=== PATIENT | female | born 1940 | race Caucasian/White ===

== ENCOUNTER 2022-07-11 19:16 | Emergency (ER) | payer MEDICAID, OTHER ==
[~2022-07-11] VITALS: Ht 160 cm; Wt 125.0 kg
[2022-07-11 19:57] LABS: BILIRUBIN,URINE NEGATIVE (NEGATIVE); CLARITY,URINE CLEAR; COLOR,URINE YELLOW; GLUCOSE, URINE (UA) NEGATIVE (NEGATIVE); KETONES,URINE NEGATIVE (NEGATIVE); LEUKOCYTE ESTERASE ,URINE NEGATIVE (NEGATIVE); NITRITE,URINE NEGATIVE (NEGATIVE); PROTEIN,URINE NEGATIVE (NEGATIVE)
--- NOTE | 2022-07-11 20:03 | ED GU-Female ---
General Chief Complaint: - Reproductive Stated Complaint: WEAKNESS,GI ISSUES Nursing Triage Note: Pt presents with c/o bleeding with urination. Upon investigation pt has skin breakdown and wounds to buttock, chaz, and genital regions. Wounds smell of yeast and are red and non blanching. Source: patient Exam Limitations: no limitations History of Present Illness Date Seen by Provider: Jul 11, 2022 Time Seen by Provider: 19:30 Initial Comments Patient is a 81-year-old female presents with intertrigo and bleeding around her skin folds or groin. Symptoms been ongoing for the past several days. Patient with bright red and inflamed yeast infection with red swollen skin no fever chills or sweats. No other symptoms or complaints Timing/Duration: just prior to arrival Severity/Quality: mild Location: other Radiation: other Activities at Onset: other Sexual [place] History: other Modifying Factors: Improves With Other Associated Symptoms: other Allergies and Home Medications Patient Home Medication List Home Medication List Reviewed: Yes Review of Systems Review of Systems Constitutional: see HPI EENTM: see HPI Respiratory: see HPI Gastrointestinal: see HPI Genitourinary: see HPI Musculoskeletal: see HPI Skin: see HPI Psychiatric/Neurological: See HPI Endocrine: See HPI Hematologic/Lymphatic: See HPI All Other Systemes Reviewed Negative Unless Noted: No Past Jetcerz-Bwyrja-Vbloig Hx Patient Social History Tobacco Use?: No Physical Exam Vital Signs Vital Signs - First Documented 07/11/22 19:25 Temp 36.7 Pulse 85 Resp 18 B/P (MAP) 102/78 (86) Pulse Ox 100 O2 Delivery Room Air Capillary Refill : Less Than 3 Seconds Height, Weight, BMI Height: '" Weight: lbs. oz. kg; 48.00 BMI Method: General Appearance: WD/WN, no apparent distress HEENT: PERRL/EOMI Cardiovascular: regular rate, rhythm Respiratory: lungs clear Skin: other (Intertrigo with yeast infection groin folds.) Focused Exam Sepsis Stage: Ruled Out Progress/Results/Core Measures Suspected Sepsis SIRS Temperature: Pulse: 85 Respiratory Rate: 18 Blood Pressure 102 /78 Mean: 86 Results/Orders Lab Results Laboratory Tests Test 07/11/22 19:40 Range/Units My Orders Orders - MICHAEL RUST DO Urinalysis (07/11/22 19:24) Vital Signs/I&O 07/11/22 19:25 Temp 36.7 Pulse 85 Resp 18 B/P (MAP) 102/78 (86) Pulse Ox 100 O2 Delivery Room Air Capillary Refill : Less Than 3 Seconds Blood Pressure Mean: 86 Departure Communication (Admissions) Intertrigo Impression Primary Impression: Candidiasis, intertrigo Disposition: 01 HOME, SELF-CARE Condition: Stable Departure-Patient Inst. Decision time for Depature: 20:03 Patient Instructions: Intertrigo Add. Discharge Instructions: Please keep areas clean and dry and covered. Take newly prescribed medication as directed and follow-up with your PCP in 2 to 3 days for reevaluation. All discharge instructions reviewed with patient and/or family. Voiced understanding. Scripts Fluconazole (Diflucan) 100 Mg Tablet 100 MG PO DAILY, #7 TAB Prov: MICHAEL RUST DO 07/11/22 MICHAEL RUST DO Jul 11, 2022 20:03
[2022-07-11 20:07] LABS: BACTERIA,URINE NEGATIVE /HPF; WBC,URINE RARE /HPF
[2022-07-11] MEDS ORDERED: FLUC100T PO (20:08)
[2022-07-11] MEDS ORDERED: ACHD5005 PO ×2 (20:26)
[2022-07-11 20:45] VITALS: BP 103/59
== END 2022-07-11 19:56 | disposition home or self-care (01) ==
LOC: ER FS 19:17
DX: B37.2 Candidiasis of skin and nail (principal); Z28.310 Unvaccinated for COVID-19
CPT/HCPCS: 81000; 99283

== ENCOUNTER 2022-12-11 12:14 | Inpatient (IN) | payer MEDICAID ==
[~2022-12-11] VITALS: Ht 160 cm; Wt 113.6 kg
[~2022-12-11 12:14] MED LIST: ACHD5005 PO; FLUC100T PO
[2022-12-11] MEDS ORDERED: KETOROLAC 15 MG/ML VIAL IVP STA (12:28)
--- NOTE | 2022-12-11 13:03 | Diagnostic Imaging Report ---
CLINICAL HISTORY: Left leg pain. COMPARISON: None. TECHNIQUE: 2 views of the left tibia and fibula. FINDINGS: There is no acute fracture or dislocation of the left tibia and fibula. Alignment is anatomic. The imaged joint spaces are preserved. No focal osseous lesions are seen. There is generalized soft tissue edema in the left lower extremity. IMPRESSION: 1. No acute fracture or dislocation in the left tibia and fibula. 2. Soft tissue edema in the left lower extremity. Dictated by: Dictated on workstation # [id number]
[2022-12-11 13:05] LABS: BASOPHILS # (AUTO) 0.1 10^3/uL (0.0-0.1); BASOPHILS % (AUTO) 0 % (0-10); EOSINOPHILS # (AUTO) 3.3 10^3/uL (0.0-0.3); EOSINOPHILS % (AUTO) 17 % (0-10); HEMATOCRIT 35 % (35-52); HEMOGLOBIN 11.3 g/dL (11.5-16.0); LYMPHOCYTES # (AUTO) 0.8 10^3/uL (1.0-4.0); LYMPHOCYTES % (AUTO) 4 % (12-44); MEAN CORPUSCULAR HEMOGLOBIN 29 pg (25-34); MEAN CORPUSCULAR HGB CONC 32 g/dL (32-36); MEAN CORPUSCULAR VOLUME 91 fL (80-99); MEAN PLATELET VOLUME 9.7 fL (9.0-12.2); MONOCYTES # (AUTO) 2.3 10^3/uL (0.0-1.0); MONOCYTES % (AUTO) 12 % (0-12); NEUTROPHILS # (AUTO) 12.5 10^3/uL (1.8-7.8); NEUTROPHILS % (AUTO) 66 % (42-75); PLATELET COUNT 270 10^3/uL (130-400)
--- NOTE | 2022-12-11 13:05 | Diagnostic Imaging Report ---
CLINICAL HISTORY: Left leg pain and swelling. Injury. COMPARISON: None. TECHNIQUE: 3 views of the left femur. FINDINGS: There is no acute fracture or dislocation of the left femur. Alignment is anatomic. The imaged joint spaces are preserved. No suspicious focal osseous lesion. There is generalized edema in the left lower extremity. IMPRESSION: 1. No acute fracture or dislocation in the left femur. Please note the left knee is not well characterized on this exam. If there is localized left knee pain consider dedicated radiographs of the left knee to further evaluate. 2. Edema in the visualized left lower extremity. Dictated by: Dictated on workstation # [id number]
[2022-12-11 13:27] LABS: BILIRUBIN,TOTAL 1.1 MG/DL (0.1-1.0); CALCIUM 8.8 MG/DL (8.5-10.1); CREATININE SERUM 2.41 MG/DL (0.60-1.30); POTASSIUM 4.2 MMOL/L (3.6-5.0)
[2022-12-11 13:28] LABS: TOTAL PROTEIN 6.6 GM/DL (6.4-8.2)
[2022-12-11 13:29] LABS: BAND NEUTROPHILS 3 %; BASOPHILS % (MANUAL) 0 %; EOSINOPHILS % (MANUAL) 0 %; LYMPHOCYTES % (MANUAL) 4 %; MONOCYTES % (MANUAL) 6 %; NEUTROPHILS % (MANUAL) 87 %
--- NOTE | 2022-12-11 13:39 | Diagnostic Imaging Report ---
EXAMINATION: US Lower Extremity Venous Duplex Left. TECHNIQUE: Multiple real-time grayscale images were obtained over the left lower extremity in various projections. Additional spectral analysis and color Doppler duplex images were also obtained. HISTORY: Left lower extremity pain and edema. COMPARISON: None available. FINDINGS: There is a nonocclusive thrombus within the left common femoral vein which demonstrates partial compressibility. There is normal color Doppler filling and compressibility within the profunda femoris vein and proximal portion of the left superficial femoral vein. Nonocclusive thrombus is visualized in the mid and distal left superficial femoral vein and left popliteal vein. There is occlusion of the left peroneal trunk. IMPRESSION: 1. Moderate burden of nonocclusive deep vein thrombus in the left lower extremity venous system. Dictated by: Dictated on workstation # [id number]
[2022-12-11 13:48] LABS: BILIRUBIN,URINE NEGATIVE (NEGATIVE); CLARITY,URINE CLEAR; COLOR,URINE YELLOW; GLUCOSE, URINE (UA) NEGATIVE (NEGATIVE); KETONES,URINE NEGATIVE (NEGATIVE); LEUKOCYTE ESTERASE ,URINE NEGATIVE (NEGATIVE); NITRITE,URINE NEGATIVE (NEGATIVE); PH,URINE 5.5 (5-9); PROTEIN,URINE NEGATIVE (NEGATIVE)
[2022-12-11] MEDS ORDERED: VANCOMYCIN INJECTION 1,000 MG in NS (IVPB) 250 ML IV STA (13:54)
[2022-12-11] MEDS ORDERED: PIPERACILLIN SODIUM/TAZOBACTAM 4.5 GM in NS (IVPB) 100 ML IV STA (13:54)
[2022-12-11 14:06] LABS: BACTERIA,URINE NEGATIVE /HPF; WBC,URINE 0-2 /HPF
[2022-12-11] MEDS ORDERED: NS IV 1000 ML 1,000 ML ONE (14:06)
--- NOTE | 2022-12-11 14:07 | ED Lower Extremity ---
General Chief Complaint: Lower Extremity Stated Complaint: LEFT KNEE/LEG PAIN Nursing Triage Note: Patient presents to the ED by EMS for chief complaint of left lower extremity redness, swelling, and pain. Patient lives at home alone with caregiver support during the day according to patient's niece. Patient's niece states patient was unable to ambulate or transfer this morning due to the pain. Niece states patient has had gout in the past, but was unable to refill her gout medication without seeing her PCP. Source: patient History of Present Illness Date Seen by Provider: Dec 11, 2022 Time Seen by Provider: 12:14 Initial Comments 82-year-old female presenting by EMS from home due to severe left leg pain and swelling. Family has not come to check on her and reported that she was having so much pain that she could not get up and walk so they had called EMS. They had called the [facility] clinic to request a refill on medication for gout but had not had it approved through the clinic yet. The niece states that patient has had gout in the past and they were thinking that might be why she was having the pain. Patient gets around with a walker and lives at home on her own but has family to check on her and provide caregiver support. She follows with Shanna Hennessy APRN, through [facility] clinic. Daughter reports she has a sore on her bottom and the daughter has been applying a barrier ointment to the area. Onset: this morning (severe left leg pain) Pain/Injury Location: left leg, left knee, left foot, left ankle Method of Injury: unknown Modifying Factors: Worse With Movement (with any movement or palpation of left leg she screams out in pain) Allergies and Home Medications Allergies Coded Allergies: No Known Drug Allergies (Unverified , 07/11/22) Patient Home Medication List Home Medication List Reviewed: Yes Fluconazole (Diflucan) 100 Mg Tablet, 100 MG PO DAILY Prescribed by: MICHAEL RUST on 07/11/222007 Hydrocodone/Acetaminophen (Hydrocodone-Acetamin 5-325 mg) 5 Mg-325 Mg Tablet, 1 TAB PO Q4H PRN for PAIN-MODERATE (5-7) Prescribed by: MICHAEL RUST on 08/11/221006 Hydrocodone/Acetaminophen (Hydrocodone-Acetamin 5-325 mg) 5 Mg-325 Mg Tablet, 1 TAB PO Q4H PRN for PAIN-MODERATE (5-7) Prescribed by: MICHAEL RUST on 07/11/222026 Review of Systems Constitutional: No chills, No fever; malaise, weakness EENTM: no symptoms reported Respiratory: no symptoms reported Cardiovascular: no symptoms reported Gastrointestinal: no symptoms reported Genitourinary: No dysuria Musculoskeletal: see HPI Skin: change in color (mild erythema to left foot and calf) Psychiatric/Neurological: Anxiety Past Ezsmxgu-Bsvesf-Fvovnm Hx Patient Social History Tobacco Use?: No Substance use?: No Alcohol Use?: No Pt feels they are or have been: No Past Medical History Surgery/Hospitalization HX: Gout, HTN, Hypothyroid, Hyperlipidemia, Osteoarthritis, Obesity Physical Exam Vital Signs Vital Signs - First Documented 12/11/22 12:18 Temp 37.6 Pulse 113 Resp 20 B/P (MAP) 112/73 (86) Pulse Ox 95 O2 Delivery Room Air Capillary Refill : Less Than 3 Seconds Height, Weight, BMI Height: '" Weight: lbs. oz. kg; 48.00 BMI Method: General Appearance: obese, other (disheveled and poor personal hygiene) HEENT: PERRL/EOMI; No pharynx normal (slightly dry mucous membranes) Neck: non-tender, full range of motion, supple Cardiovascular: normal peripheral pulses, regular rate, rhythm Respiratory: chest non-tender, lungs clear, normal breath sounds Gastrointestinal: normal bowel sounds, non tender, soft, no pulsatile mass Hips: bilateral hip non-tender, bilateral hip normal inspection; left hip pain (pain with any movement or palpation of left leg ) Legs: left leg pain, left leg soft tissue tenderness, left leg swelling Knees: left knee pain, left knee soft tissue tenderness, left knee swelling Ankles: left ankle pain, left ankle soft tissue tenderness, left ankle swelling Feet: left foot pain, left foot soft tissue tenderness, left foot swelling Neurologic/Psychiatric: alert, oriented x 3 Skin: warm/dry, other (increased erythema to Left lower extremity and tender to palpation and movement of left leg. Stage 2 Decubitus ulcer to gluteal cleft with erythema and friable tissue ) Progress/Results/Core Measures Results/Orders Lab Results Laboratory Tests Test 12/11/22 12:55 12/11/22 13:40 12/11/22 14:10 Range/Units White Blood Count 19.0 H 4.3-11.0 10^3/uL Red Blood Count 3.89 3.80-5.11 10^6/uL Hemoglobin 11.3 L 11.5-16.0 g/dL Hematocrit 35 35-52 % Mean Corpuscular Volume 91 80-99 fL Mean Corpuscular Hemoglobin 29 25-34 pg Mean Corpuscular Hemoglobin Concent 32 32-36 g/dL Red Cell Distribution Width 15.4 H 10.0-14.5 % Platelet Count 270 130-400 10^3/uL Mean Platelet Volume 9.7 9.0-12.2 fL Immature Granulocyte % (Auto) 1 % Neutrophils (%) (Auto) 66 42-75 % Lymphocytes (%) (Auto) 4 L 12-44 % Monocytes (%) (Auto) 12 0-12 % Eosinophils (%) (Auto) 17 H 0-10 % Basophils (%) (Auto) 0 0-10 % Neutrophils # (Auto) 12.5 H 1.8-7.8 10^3/uL Lymphocytes # (Auto) 0.8 L 1.0-4.0 10^3/uL Monocytes # (Auto) 2.3 H 0.0-1.0 10^3/uL Eosinophils # (Auto) 3.3 H 0.0-0.3 10^3/uL Basophils # (Auto) 0.1 0.0-0.1 10^3/uL Immature Granulocyte # (Auto) 0.1 0.0-0.1 10^3/uL Neutrophils % (Manual) 87 % Lymphocytes % (Manual) 4 % Monocytes % (Manual) 6 % Eosinophils % (Manual) 0 % Basophils % (Manual) 0 % Band Neutrophils 3 % Sodium Level 140 135-145 MMOL/L Potassium Level 4.2 3.6-5.0 MMOL/L Chloride Level 100 98-107 MMOL/L Carbon Dioxide Level 27 21-32 MMOL/L Anion Gap 13 5-14 MMOL/L Blood Urea Nitrogen 51 H 7-18 MG/DL Creatinine 2.41 H 0.60-1.30 MG/DL Estimat Glomerular Filtration Rate 20 BUN/Creatinine Ratio 21 Glucose Level 142 H 70-105 MG/DL Calcium Level 8.8 8.5-10.1 MG/DL Corrected Calcium 9.6 8.5-10.1 MG/DL Total Bilirubin 1.1 H 0.1-1.0 MG/DL Aspartate Amino Transf (AST/SGOT) 20 5-34 U/L Alanine Aminotransferase (ALT/SGPT) 10 0-55 U/L Alkaline Phosphatase 194 H 40-136 U/L C-Reactive Protein 16.17 H <0.50 MG/DL Total Protein 6.6 6.4-8.2 GM/DL Albumin 3.0 L 3.2-4.5 GM/DL Urine Color YELLOW Urine Clarity CLEAR Urine pH 5.5 5-9 Urine Specific [place] 1.020 1.016-1.022 Urine Protein NEGATIVE NEGATIVE Urine Glucose (UA) NEGATIVE NEGATIVE Urine Ketones NEGATIVE NEGATIVE Urine Nitrite NEGATIVE NEGATIVE Urine Bilirubin NEGATIVE NEGATIVE Urine Urobilinogen 0.2 < = 1.0 MG/DL Urine Leukocyte Esterase NEGATIVE NEGATIVE Urine RBC (Auto) NEGATIVE NEGATIVE Urine RBC NONE /HPF Urine WBC 0-2 /HPF Urine Squamous Epithelial Cells NONE /HPF Urine Crystals NONE /LPF Urine Bacteria NEGATIVE /HPF Urine Casts NONE /LPF Urine Mucus NEGATIVE /LPF Urine Culture Indicated NO Lactic Acid Level 1.62 0.50-2.00 MMOL/L My Orders Orders - LUIS CARLOS DEAN MD Cbc With Automated Diff (12/11/22 12:24) Comprehensive Metabolic Panel (12/11/22 12:24) Ua Culture If Indicated (12/11/22 12:24) Ed Iv/Invasive Line Start (12/11/22 12:24) Crp Fs (12/11/22 12:24) Tibia Fibula 2 View Left (12/11/22 12:24) Femur 2 View Left (12/11/22 12:24) Us Venous Lower Ext Lt (12/11/22 12:24) Ketorolac Injection (Toradol Injection) (12/11/22 12:28) Manual Differential (12/11/22 12:55) Blood Culture (12/11/22 13:52) Lactic Acid Analyzer (12/11/22 13:52) Piperacillin Sodium/Tazobactam (Zosyn Vi (12/11/22 13:54) Vancomycin Injection (Vancomycin Injecti (12/11/22 13:54) Ns Iv 1000 Ml (Sodium Chloride 0.9%) (12/11/22 14:06) Ns Iv 1000 Ml (Sodium Chloride 0.9%) (12/11/22 14:43) Enoxaparin Injection (Lovenox Injection) (12/11/22 14:43) Bustos Cath (12/11/22 15:15) Medications Given in ED Current Medications Medications Dose Ordered Sig/Iza Route Start Time Stop Time Status Last Admin Dose Admin Sodium Chloride 1,000 ml @ ud STK-MED ONCE .ROUTE 12/11/22 14:06 12/11/22 14:10 DC 12/11/22 14:27 1,000 MLS/HR Vital Signs/I&O 12/11/22 12/11/22 12:18 15:25 Temp 37.6 Pulse 113 96 Resp 20 18 B/P (MAP) 112/73 (86) 114/91 Pulse Ox 95 99 O2 Delivery Room Air Room Air Blood Pressure Mean: 86 Admisison Planning May Need Admission (Planning): 12:30 Progress Progress Note #1: Progress Note Potential diagnosis of left hip fracture, arthritis of the left knee, cellulitis, DVT, ankle fracture, tibia/fibula fracture, sepsis, UTI, decubitus ulcer infection. Peripheral IV access for fluids and pain medicine. Obtain labs to evaluate her complete blood count, comprehensive metabolic profile, CRP. X-rays of the left femur and left tib-fib to evaluate for possible acute bony abnormality as she could be having referred pain from hip fracture or could have fractured the left lower leg to cause her pain to the point that she was not getting up and using her walker. Since she does have increased swelling and mild erythema to the left lower extremity as well as pain with palpation will order ultrasound to evaluate for possible DVT. Place Bustos catheter to monitor urine output and evaluate for UTI as well as due to pain with any movement of the left leg. Order dose of Toradol 15 mg IV to try and help with pain and inflammation. Progress Note #2: Time: 13:39 Progress Note Complete blood count shows elevated white blood cells to 19,000. She has mild anemia with a hemoglobin of 11.3. Normal platelets of 270. For her differential she had 87% neutrophils and 3% bands. She had comprehensive metabolic profile that showed acute kidney injury with BUN of 51 and creatinine of 2.41. Her glucose was slightly elevated to 142. Awaiting CRP. We will add on blood cultures and lactic acid since she has a high white blood cell count. Potential source from decubitus ulcer, UTI, cellulitis. Called and discussed with Dr. Bird on-call hospitalist for [facility]. With the patient having severe pain with any movement or palpation in the left leg as well as having a DVT found on ultrasound with no bony injury on x-rays and possible infection from her decubitus ulcer, she was agreeable to having patient be admitted as observation patient for hydration, antibiotics and DVT treatment. Will order a dose of Lovenox of 120 mg x 1. 1352 After i had initially spoken with Dr. Menendez the patient's blood pressures were reading low at 70-85 systolic. Patient still alert and awake and able to answer questions. She wanted to change the patient to ICU admit and full admission in light of these findings. Make sure to get blood cultures and lactic acid prior to starting antibiotics. Start on Vancomycin and Zosyn for broad spectrum coverage. I updated patient and family member. They were agreeable to admit in [place]. Ordered IVF total of 2 Liters of NS for blood pressure and hydration. Progress Note #3: Time: 15:06 Progress Note CRP elevated to 16.17 but Lactic acid not elevated at 1.62. With IVF hydration blood pressure up to 114/67. continue with ICU admit to [facility]. Diagnostic Imaging Diagonstic Imaging: Xray Plain Films/CT/US/NM/MRI: femur Comments [facility], [place] NAME: SYLVESTER GONZALEZ [facility] REC#: [id number] PT STATUS: REG ER : 1940 PHYSICIAN: LUIS CARLOS DEAN MD ADMIT DATE: 12/11/22/ER FS Signed Date of Exam:12/11/22 FEMUR 2 VIEW LEFT CLINICAL HISTORY: Left leg pain and swelling. Injury. COMPARISON: None. TECHNIQUE: 3 views of the left femur. FINDINGS: There is no acute fracture or dislocation of the left femur. Alignment is anatomic. The imaged joint spaces are preserved. No suspicious focal osseous lesion. There is generalized edema in the left lower extremity. IMPRESSION: 1. No acute fracture or dislocation in the left femur. Please note the left knee is not well characterized on this exam. If there is localized left knee pain consider dedicated radiographs of the left knee to further evaluate. 2. Edema in the visualized left lower extremity. Dictated by: Dictated on workstation # [id number] Dict: 12/11/22 1301 Trans: 12/11/22 1306 ISAI [id number] Interpreted by: KILLIAN CHATMAN DO Electronically signed by: KILLIAN CHATMAN DO 12/11/22 130 Diagonstic Imaging: Xray Plain Films/CT/US/NM/MRI: leg Comments [facility] [place] NAME: SYLVESTER GONZALEZ [facility] REC#: [id number] PT STATUS: REG ER : 1940 PHYSICIAN: LUIS CARLOS DEAN MD ADMIT DATE: 12/11/22/ER FS Signed Date of Exam:12/11/22 TIBIA FIBULA 2 VIEW LEFT CLINICAL HISTORY: Left leg pain. COMPARISON: None. TECHNIQUE: 2 views of the left tibia and fibula. FINDINGS: There is no acute fracture or dislocation of the left tibia and fibula. Alignment is anatomic. The imaged joint spaces are preserved. No focal osseous lesions are seen. There is generalized soft tissue edema in the left lower extremity. IMPRESSION: 1. No acute fracture or dislocation in the left tibia and fibula. 2. Soft tissue edema in the left lower extremity. Dictated by: Dictated on workstation # [id number] Dict: 12/11/22 1259 Trans: 12/11/22 1303 ISAI [id number] Interpreted by: KILLIAN CHATMAN DO Electronically signed by: KILLIAN CHATMAN DO 12/11/22 130 Reviewed: Reviewed by Sd Diagonstic Imaging: Ultrasound Plain Films/CT/US/NM/MRI: leg Comments [facility] [place] NAME: SYLVESTER GONZALEZ [facility] REC#: [id number] PT STATUS: REG ER : 1940 PHYSICIAN: LUIS CARLOS DEAN MD ADMIT DATE: 12/11/22/ER FS Signed Date of Exam:12/11/22 US VENOUS LOWER EXT LT EXAMINATION: US Lower Extremity Venous Duplex Left. TECHNIQUE: Multiple real-time grayscale images were obtained over the left lower extremity in various projections. Additional spectral analysis and color Doppler duplex images were also obtained. HISTORY: Left lower extremity pain and edema. COMPARISON: None available. FINDINGS: There is a nonocclusive thrombus within the left common femoral vein which demonstrates partial compressibility. There is normal color Doppler filling and compressibility within the profunda femoris vein and proximal portion of the left superficial femoral vein. Nonocclusive thrombus is visualized in the mid and distal left superficial femoral vein and left popliteal vein. There is occlusion of the left peroneal trunk. IMPRESSION: 1. Moderate burden of nonocclusive deep vein thrombus in the left lower extremity venous system. Dictated by: Dictated on workstation # [id number] Dict: 12/11/22 1335 Trans: 12/11/22 1344 [facility] [id number] Interpreted by: KILLIAN CHATMAN DO Electronically signed by: KILLIAN CHATMAN DO 12/11/22 1344 Reviewed: Reviewed by Me Critical Care Note Critical Care Total Time (minutes) 45 minutes Progress I spent at least 45 minutes of critical care time with the patient. Time excludes separately billable procedures. Time was spent obtaining history from patient and family members, ordering tests and reviewing results, ordering interventions and reviewing response, discussion with consultants, documentation in the chart. Patient was at risk of cardiovascular compromise and collapse with sepsis and DVT. She required immediate and direct care to help stabilize her condition and arrange transfer to higher level of care. Departure Communication (Admissions) Time/Spoke to Admitting Phy: 13:[address] Menendez that patient has low blood pressure and findings for possible sepsis with septic shock due to her pressures. Potential source of infection as Decubitus ulcer vs possible cellulitis LLE, DVT LLE. Labs show elevated WBC count and Acute kidney injury with dehydration. Will place patient as full admit to ICU with IV antibiotics of Zosyn 4.5 grams IV and Vancomycin 1 gram IV. Give IVF for hydration and to help with blood pressure. Impression Primary Impression: Sepsis Qualified Codes: A41.9 - Sepsis, unspecified organism; R65.21 - Severe sepsis with septic shock; N17.9 - Acute kidney failure, unspecified Additional Impressions: Deep vein thrombosis (DVT) of left lower extremity Qualified Codes: I82.492 - Acute embolism and thrombosis of other specified deep vein of left lower extremity Decubitus ulcer of buttock Qualified Codes: L89.302 - Pressure ulcer of unspecified buttock, stage 2 Dehydration Acute kidney injury (nontraumatic) Disposition: 30 STILL A PATIENT Condition: Critical Admissions Decision to Admit Reason: Admit from ER (General) Decision to Admit/Date: Dec 11, 2022 Time/Decision to Admit Time: 13:52 Departure-Patient Inst. Referrals: SHANNA HENNESSY APRN (PCP/Family) Primary Care Physician LUIS CARLOS DEAN MD Dec 11, 2022 14:07
[2022-12-11] MEDS ORDERED: NS IV 1000 ML 1,000 ML IV STA (14:43)
[2022-12-11] MEDS ORDERED: ENOXAPARIN 60 MG/0.6 ML (LOVENOX) SYR SC STA (14:43)
[2022-12-11] MEDS ORDERED: NOREPINEPHRINE 8 MG/250 ML 250 ML IV ONE (16:34)
[2022-12-11] MEDS: NOREPINEPHRINE 8 MG/250 ML 250 ML IV SCH (16:43)
[2022-12-11] MEDS ORDERED: MELATONIN 3 MG TABLET PO PRN (16:45)
[2022-12-11] MEDS ORDERED: NS IV 500 ML 500 ML IV PRN (16:45)
[2022-12-11] MEDS ORDERED: BISACODYL 10 MG SUPP (DULCOLAX) PR PRN (16:45)
[2022-12-11] MEDS ORDERED: ANTACID SUSP 30 ML UDC (MYLANTA) PO PRN (16:45)
[2022-12-11] MEDS ORDERED: ONDANSETRON 4 MG (ZOFRAN) ORAL DISSOLVE TAB PO PRN (16:45)
[2022-12-11] MEDS ORDERED: ENOXAPARIN 100 MG/1 ML (LOVENOX) SYR SC SCH (16:45)
[2022-12-11] MEDS ORDERED: ONDANSETRON 4 MG/2 ML (SDV) Z0FRAN IV PRN (16:45)
[2022-12-11] MEDS ORDERED: HYDROmorphone 2 MG/ML VIAL (DILAUDID) IV PRN (16:45)
[2022-12-11] MEDS ORDERED: polyethylene glycoL POWDER 17 GM (MIRALAX) PACK PO PRN (16:45)
[2022-12-11] MEDS ORDERED: diphenhydrAMINE 50 MG/ML INJ (BENADRYL) IVP PRN (16:45)
[2022-12-11] MEDS ORDERED: VANCOMYCIN INJECTION 1,000 MG in NS (IVPB) 250 ML IV SCH (16:45)
[2022-12-11] MEDS ORDERED: diphenhydrAMINE 25 MG TAB (BENADRYL) PO PRN (16:45)
[2022-12-11] MEDS ORDERED: ENOXAPARIN 120 MG/0.8 ML (LOVENOX) SQ SCH (17:00)
[2022-12-11] MEDS ORDERED: VANCOMYCIN 750 MG/NS 250 ML IVPB IV NR ×2 (17:00)
[2022-12-11] MEDS ORDERED: ENOXAPARIN 150 MG/ML (LOVENOX) SYR SQ SCH (17:00)
--- NOTE | 2022-12-11 17:19 | Tele-ICU Consult ---
History of Present Illness History of Present Illness Date Seen by Provider: Dec 11, 2022 Time Seen by Provider: 17:18 Date of Admission (Tele-ICU Physician , consultation as per request of PCP Service provided via interactive audio and video telecommunications E-CARE system to a patient admitted to ICU bed in [facility]. Available chart/ vitals / labs / Images reviewed H&P is from ER notes Patient's information available about PMH, Shx, Fhx allergy reviewed inEMR. ROS as per chart and RN report Now in ICU, hemodynamically stable Video assessment done using teleICU camera, rest of exam as per RN Discussed with RN. Hospital course: (12/11) 82F Admitted from [facility] ER for cellulitis LLE, non-occlusive DVT LLE, decubitus ulcer stage II to gluteal cleft. BP low on arrival to ICU A/P Sepsis with shock ( sourses: cellulitis , decubitus ulcer . UA is clear , no cxr done - received IVF total of 1 Liters of NS, ongoing 2nd 1L NS , also in levo ( periph line - abx started - Vancomycin and Zosyn, cx done in ER - pending - will reassess after NS bolus , night need central line Cellulitis - cont abx [place]LOTTE - hydration to cont - mittal in place - UO minimal , monitor after NS bolus Acute DVT LEFT , moderate burden , nonocclusive clots - lovenox full dose , started in ER - adjust to Cr Lines : periph , (Central Line Necessity Reviewed) Mittal: 12/11 OG: Nutrition: po Analgesia: Anxiety/ delirium VTE Prophylaxis: tee full dose Stress Ulcer Prophylaxis: po Plans in collaboration with bedside consultants and IM MDs. Discussed with RN to reach out if any questions or concerns A total of 32 minutes of critical care time was devoted to this patient today, required to treat and/or prevent further deterioration of critical care c ondition ( as above ) . I am remotely monitoring this patient from another state. I am unable to do the bedside exam, and history/physical and pertinent information is taken from other notes in the computer and bedside staff. . Allergies and Home Medications Allergies Coded Allergies: No Known Drug Allergies (Unverified , 07/11/22) Home Medications Fluconazole 100 Mg Tablet, 100 MG PO DAILY Prescribed by: MICHAEL RUST on 07/11/222007 Hydrocodone/Acetaminophen 5 Mg-325 Mg Tablet, 1 TAB PO Q4H PRN for PAIN-MODERATE (5-7) Prescribed by: MICHAEL RUST on 08/11/22 1007 Hydrocodone/Acetaminophen 5 Mg-325 Mg Tablet, 1 TAB PO Q4H PRN for PAIN-MODERATE (5-7) Prescribed by: MICHAEL RUST on 07/11/222026 Past Medical/Social/Family Hx Patient Social History Tobacco Use?: No Substance use?: No Alcohol Use?: No Pt stated abuse/neglect: No Immunizations Up To Date Influenza Vaccine Up-to-Date: Yes; Up-to-Date Tetanus Booster (TDap): Unknown Current Status Advance Directives: Unable to obtain Communicates: Verbally Primary Language: Canadian Preferred Spoken Language: Canadian Is interpretation needed?: No Sensory deficits: Vision impairment Implanted or Applied Medical D: None Review of Systems Constitutional: see HPI Focused Exam Sepsis Stage: Septic Shock Lactate Level 12/11/22 14:10: Lactic Acid Level 1.62 Height, Weight, BMI Height: '" Weight: lbs. oz. kg; 42.14 BMI Method: Respiratory: Lungs Clear, Decreased Breath Sounds Cardiovascular: Regular Rate, Rhythm, Other Lactic Acid Level Laboratory Tests Test 12/11/22 14:10 Lactic Acid Level 1.62 MMOL/L (0.50-2.00) Within 3hrs of presentation: Admin fluids, Admin ABX, Blood cultures prior to ABX's, Focus exam, Lactate level, Vasopressin therapy Exam Exam Patient acknowledged, consented, and participated in this virtual visit which was conducted using real time audio/video Vital Signs Date Time Temp Pulse Resp B/P (MAP) Pulse Ox O2 Delivery O2 Flow Rate FiO2 12/11/22 16:43 37.0 12/11/22 16:43 77/40 12/11/22 15:25 96 18 114/91 99 Room Air 12/11/22 12:18 37.6 113 20 112/73 (86) 95 Room Air Height & Weight Height: '" Weight: lbs. oz. kg; 42.14 BMI Method: General Appearance: No Apparent Distress Capillary Refill: Less Than 3 Seconds Gastrointestinal: normal bowel sounds, non tender, soft, no pulsatile mass Results Lab Laboratory Tests 12/11/22 12:55 Assessment/Plan Assessment/Plan 1 KYLEIGH CUELLAR MD Dec 11, 2022 17:19
[2022-12-11] MEDS: NS IV 1000 ML 1,000 ML IV SCH (18:21)
[2022-12-11 19:19] VITALS: BP 122/63
[2022-12-11] MEDS ORDERED: RT-ALBUTEROL HFA 8.5 GM INHALER IH PRN (19:30)
[2022-12-11] MEDS: PIPERACILLIN SODIUM/TAZOBACTAM 4.5 GM in NS (IVPB) 100 ML IV SCH (20:23)
[2022-12-11] MEDS: DOCUSATE SODIUM 100 MG (COLACE) CAP PO SCH ×2 (20:23→20:26)
[2022-12-12] MEDS: PIPERACILLIN SODIUM/TAZOBACTAM 4.5 GM in NS (IVPB) 100 ML IV SCH ×3 (04:05→20:53)
[2022-12-12 05:25] LABS: ABG BASE EXCESS 0.2 MMOL/L (-2.5-2.5); ABG OXYGEN SATURATION 99 % (94-100); ABG PCO2 39 MMHG (35-45); ABG PH 7.41 (7.37-7.43); ABG PO2 134 MMHG (79-93); ABG TCO2 25.5 MMOL/L (21.0-31.0); ALLENS TEST YES-POS; INSPIRED O2 21%; PATIENT TEMP 36.8; VENTILATOR NO
[2022-12-12] MEDS ORDERED: KCL 20 MEQ TAB (K-DUR) PO SCH (06:00)
[2022-12-12] MEDS ORDERED: POTASSIUM CL 10MEQ/50ML IVPB 50 ML IV SCH (06:00)
[2022-12-12 06:25] LABS: BASOPHILS % (AUTO) 0 % (0-10); EOSINOPHILS # (AUTO) 0.2 10^3/uL (0.0-0.3); EOSINOPHILS % (AUTO) 1 % (0-10); HEMATOCRIT 33 % (35-52); HEMOGLOBIN 10.6 g/dL (11.5-16.0); LYMPHOCYTES # (AUTO) 1.1 10^3/uL (1.0-4.0); LYMPHOCYTES % (AUTO) 7 % (12-44); MEAN CORPUSCULAR HEMOGLOBIN 30 pg (25-34); MEAN CORPUSCULAR HGB CONC 33 g/dL (32-36); MEAN CORPUSCULAR VOLUME 91 fL (80-99); MEAN PLATELET VOLUME 10.2 fL (9.0-12.2); MONOCYTES # (AUTO) 1.9 10^3/uL (0.0-1.0); MONOCYTES % (AUTO) 12 % (0-12); NEUTROPHILS # (AUTO) 12.9 10^3/uL (1.8-7.8); NEUTROPHILS % (AUTO) 80 % (42-75); PLATELET COUNT 192 10^3/uL (130-400); WHITE BLOOD COUNT 16.2 10^3/uL (4.3-11.0)
[2022-12-12 06:27] LABS: ALBUMIN 2.4 GM/DL (3.2-4.5)
[2022-12-12 06:28] LABS: POTASSIUM 3.9 MMOL/L (3.6-5.0)
[2022-12-12 06:29] LABS: CALCIUM 7.6 MG/DL (8.5-10.1)
[2022-12-12 06:33] LABS: PHOSPHORUS 3.2 MG/DL (2.3-4.7)
[2022-12-12 06:34] LABS: CREATININE SERUM 2.11 MG/DL (0.60-1.30)
[2022-12-12] MEDS: NOREPINEPHRINE 8 MG/250 ML 250 ML IV SCH (06:54)
[2022-12-12] MEDS: MAGNESIUM 1 GM/100 ML IVPB 100 ML IV SCH ×7 (06:54→13:11)
[2022-12-12 07:27] LABS: MAGNESIUM 1.1 MG/DL (1.6-2.4)
[2022-12-12] MEDS ORDERED: LEVO50TA6 PO (09:01)
[2022-12-12] MEDS ORDERED: FURO40TA4 PO (09:01)
[2022-12-12] MEDS ORDERED: LISI5TAB20 PO (09:01)
[2022-12-12] MEDS ORDERED: ATOR20TA66 PO (09:01)
[2022-12-12] MEDS ORDERED: MELO15TA39 PO (09:01)
[2022-12-12] MEDS: NS IV 1000 ML 1,000 ML IV SCH ×2 (09:14→10:43)
[2022-12-12] MEDS: DOCUSATE SODIUM 100 MG (COLACE) CAP PO SCH ×2 (09:14→20:53)
--- NOTE | 2022-12-12 09:44 | Tele-ICU Progress Note ---
Subjective Date Seen by a Provider: Dec 12, 2022 Subjective/Events-last exam This virtual visit was conducted using real time audio/video. Thank you for asking us to see this patient for critical care services due to sepsis, cellulitis and non-oclusive DVT LLE. Also gluteal cleft decub. PE: Resting comfortably, obese. VSS. O2 sat 100% on RA HEENT: No obvious masses, adenopathy or JVD. Chest: clear to auscultation. CV: RRR S1 S2 No murmur or added sounds. Abd: Non-tender. Bowel sounds Y. : Unremarkable. FoleyY . [employer]/psychiatric: Grossly intact. No obvious focal findings. Extremities: L ankle edema. Capillary refill < 3 seconds. Skin: unremarkable. Results: Elevated WCC 16.2, decreasing, BUN 49, Creat 2.11. Decreased Mag 1.1. AB.41/39/134 on RA. Available chart/ vitals / labs / images reviewed. Video assessment done using teleICU camera, rest of exam as per RN. A/P: Critical Care: critically ill patient. Cont. abx, Lovenox. Levophed held. Replace Mag. Discussed with GERMAN Villegas. Asked RN to reach out to eICU if any questions or concerns later. Time spent with patient/coordination of care with other health professionals (mins): Sepsis Event Evaluation Height, Weight, BMI Height: '" Weight: lbs. oz. kg; 42.14 BMI Method: Focused Exam Lactate Level 12/11/22 14:10: Lactic Acid Level 1.62 Exam Exam Patient acknowledged, consented, and participated in this virtual visit which was conducted using real time audio/video Vital Signs Date Time Temp Pulse Resp B/P (MAP) Pulse Ox O2 Delivery O2 Flow Rate FiO2 12/12/22 08:00 87 19 120/76 (91) 93 Room Air 12/12/22 07:00 36.5 12/12/22 07:00 87 25 120/61 (80) 97 Room Air 12/12/22 06:50 87 12/12/22 06:30 75 14 123/54 (77) 98 Room Air 12/12/22 06:15 74 17 106/58 (82) 98 Room Air 12/12/22 05:00 75 14 103/48 (67) 97 Room Air 12/12/22 04:09 36.7 12/12/22 04:00 78 12 108/47 (71) 95 Room Air 12/12/22 04:00 98 Room Air 12/12/22 03:00 92 16 123/59 (66) 99 Room Air 12/12/22 02:00 83 18 114/64 (89) 100 Room Air 12/12/22 01:00 89 12/12/22 01:00 90 20 116/55 (72) 100 Room Air 12/12/22 00:06 36.8 12/12/22 00:00 75 18 129/60 (83) 97 Room Air 12/11/22 23:59 98 Room Air 12/11/22 23:00 85 15 109/51 (57) 100 Room Air 12/11/22 22:05 92 21 119/45 (72) 100 Room Air 12/11/22 22:03 80 18 123/108 (114) 99 Room Air 12/11/22 22:00 78 18 105/36 (48) 99 Room Air 12/11/22 21:00 80 19 103/44 (66) 100 Room Air 12/11/22 20:00 87 20 97/46 (62) 100 Room Air 12/11/22 20:00 98 Room Air 12/11/22 19:46 36.5 12/11/22 19:45 89 17 96/47 (59) 99 Room Air 12/11/22 19:30 90 16 105/50 (67) 99 Room Air 12/11/22 19:27 93 20 92/72 (75) 100 Room Air 12/11/22 19:19 37.0 96 95 21 12/11/22 19:15 94 20 94/47 (53) 9 Room Air 12/11/22 19:00 92 12/11/22 19:00 92 19 110/44 (66) 99 Room Air 12/11/22 18:00 95 10 139/69 (92) 98 Room Air 12/11/22 17:30 96 22 122/63 (82) 95 Room Air 12/11/22 17:15 91 13 107/72 (84) 97 Room Air 12/11/22 17:00 90 20 77/61 (66) 98 Room Air 12/11/22 16:45 91 15 112/65 (81) 98 Room Air 12/11/22 16:43 37.0 12/11/22 16:43 77/40 12/11/22 16:34 91 12/11/22 16:30 98 23 89/49 (62) 98 Room Air 12/11/22 16:25 100 Room Air 12/11/22 16:15 92 75/41 (52) Room Air 12/11/22 15:25 96 18 114/91 99 Room Air 12/11/22 12:18 37.6 113 20 112/73 (86) 95 Room Air I & O 12/12/22 07:00 Intake Total 3586 ml Output Total 1000 ml Balance 2586 ml Height & Weight Height: '" Weight: lbs. oz. kg; 42.14 BMI Method: General Appearance: No Apparent Distress Respiratory: Lungs Clear, Decreased Breath Sounds Cardiovascular: Regular Rate, Rhythm, Other Capillary Refill: Less Than 3 Seconds Gastrointestinal: normal bowel sounds, non tender, soft, no pulsatile mass Results Lab Laboratory Tests 12/11/22 12:55 12/12/22 05:08 12/12/22 06:06 Assessment/Plan Assessment/Plan See free text. Critical Care: Critically Ill Patient PARIS PRIDE MD Dec 12, 2022 09:43
--- NOTE | 2022-12-12 11:50 | Diagnostic Imaging Report ---
INDICATION: Hypoxia Frontal chest obtained at 1121 a.m. There is no prior study for comparison The heart is mildly enlarged. There is some atelectatic change in the left base. Lungs are otherwise clear. There is no pneumothorax or pleural fluid. IMPRESSION: Mild left basilar atelectasis but no focal infiltrate. Relatively poor inspiration. Dictated by: Dictated on workstation # [id number]
[2022-12-12] MEDS: MICONAZOLE 2% POWDER (DESENEX AF) 90 GM TOP SCH ×2 (13:08→20:53)
--- NOTE | 2022-12-12 13:36 | History & Physical-Hospitalist ---
KELVIN DUFF 12/12/22 1336: History of Present Illness HPI/Chief Complaint This patient is an 82 year old female with history of Gout, HTN, HLD, Osteoarth ritis, Obesity, and possible hypothyroidism who presented to [place] ED yesterday for severe left leg pain that was hindering ability to walk at home. She is normally independent with a walker and was not able to walk due to the pain. Upon arriving at the ED the patient was afebrile, tachycardic, normotensive, and tolerating RA. She was found to have WBC of 19, CRP 16.7, CR 2.41, and LA 1.62. X-rays of left femur & Tib/fib were negative. venous ultrasound revelaed moderate burden non occlusive DVT of LLE venous systm. She was also found to have a stage 2 decubitis ulcer per ED notes and while waiting to be admitted to [facility], she developed hypotension with systolic 70-85. She was started on Vanc and Zosyn for broad spectrum coverage, therapuetic lovenox for DVT, and admitted to the ICU where she required levophed drip due to severl BP < MAP 65. When seen this morning patient was still on levophed at rate of 0.01 and was normotensive. She is alert to self and place but not year. She reports bilateral knee pain and denies LH, CP, SOB, Cough, abd pain, N/V/D. Source: patient, EMS notes reviewed Exam Limitations: other (Patient is a poor historian with some confusion) Date Seen 12/12/22 Time Seen by a Provider: 08:30 Attending Physician Rocío Garcia Aprn PCP Admitting Physician: Katalina Cavanaugh DO Attending Physician: Katalina Cavanaugh DO Referring Physician Date of Admission Dec 11, 2022 at 16:08 Home Medications & Allergies Home Medications Reviewed patient Home Medication Reconciliation performed by pharmacy medication reconciliations electrical equipment technician and/or nursing. Patients Allergies have been reviewed. Allergies Allergies Coded Allergies No Known Drug Allergies (Rqvaxlpnkt40/2/22) Past Qzwsahc-Daoyqr-Lvjecr Hx Patient Social History Tobacco Use?: No Substance use?: No Alcohol Use?: No Pt feels they are or have been: No Immunizations Up To Date Tetanus Booster (TDap): Unknown Current Status Advance Directives: Unable to obtain Communicates: Verbally Primary Language: [place] Preferred Spoken Language: [place] Is interpretation needed?: No Sensory deficits: Vision impairment Implanted or Applied Medical D: None Past Medical History Surgeries: Gallbladder (Per patient) High Cholesterol, Hypertension Arthritis Family Medical History No Pertinent Family Hx Review of Systems Constitutional: No chills, No fever EENTM: No hearing loss, No vision loss Respiratory: No dyspnea on exertion, No short of breath Gastrointestinal: No abdominal pain, No nausea, No vomiting Genitourinary: no symptoms reported Musculoskeletal: other (Bilateral knee pain reported) Skin: change in color (some redness of LLE) Psychiatric/Neurological: No Symptoms Reported Physical Exam Physical Exam Vital Signs Vital Signs - First Documented 12/11/22 12/11/22 12:18 19:19 Temp 37.6 Pulse 113 Resp 20 B/P (MAP) 112/73 (86) Pulse Ox 95 O2 Delivery Room Air FiO2 21 Capillary Refill : Less Than 3 Seconds Height, Weight, BMI Height: '" Weight: lbs. oz. kg; 42.14 BMI Method: General Appearance: No Apparent Distress, WD/WN, Obese Eyes: Bilateral Eye PERRL, Bilateral Eye EOMI HEENT: PERRL/EOMI, Pharynx Normal, Moist Mucous Membranes Neck: Normal Inspection, Non Tender, Supple Respiratory: Lungs Clear, Normal Breath Sounds, No Accessory Muscle Use, No Respiratory Distress Cardiovascular: Regular Rate, Rhythm, No Murmur, Other (2+ pitting edema in left leg. unable to palpate pedal puls. Right leg no edema and 2+ pedal pulse) Gastrointestinal: Normal Bowel Sounds, Non Tender, Soft Extremity: Other (Minimal erthema of left LLE. Markedly tender to palpation around entirety of left knee, particularly in the joint space. No calf tenderness and no tenderness of RLE. ) Neurologic/Psychiatric: Alert, No Motor/Sensory Deficits, Other (Patient is oriented to self and place but is not oriented to year and is a poor historian. Unclear if this is baseline mental status for patient.) Lymphatic: No Adenopathy Results Results/Procedures Labs Laboratory Tests 12/11/22 12:55 12/12/22 05:08 12/12/22 06:06 Patient resulted labs reviewed. Imaging: Reviewed Imaging Report Imaging NAME: SYLVESTER GONZALEZ [facility] REC#: [id number] PT STATUS: REG ER : 1940 PHYSICIAN: LUIS CARLOS DEAN MD ADMIT DATE: 12/11/22/ER FS Signed Date of Exam:12/11/22 US VENOUS LOWER EXT LT EXAMINATION: US Lower Extremity Venous Duplex Left. TECHNIQUE: Multiple real-time grayscale images were obtained over the left lower extremity in various projections. Additional spectral analysis and color Doppler duplex images were also obtained. HISTORY: Left lower extremity pain and edema. COMPARISON: None available. FINDINGS: There is a nonocclusive thrombus within the left common femoral vein which demonstrates partial compressibility. There is normal color Doppler filling and compressibility within the profunda femoris vein and proximal portion of the left superficial femoral vein. Nonocclusive thrombus is visualized in the mid and distal left superficial femoral vein and left popliteal vein. There is occlusion of the left peroneal trunk. IMPRESSION: 1. Moderate burden of nonocclusive deep vein thrombus in the left lower extremity venous system. Dictated by: Dictated on workstation # [id number] Dict: 12/11/22 1335 Trans: 12/11/22 1344 [facility] [id number] Interpreted by: KILLIAN CHATMAN DO Electronically signed by: KILLIAN CHATMAN DO 12/11/22 1344 NAME: SYLVESTER GONZALEZ [facility] REC#: [id number] PT STATUS: REG ER : 1940 PHYSICIAN: LUIS CARLOS DEAN MD ADMIT DATE: 12/11/22/ER FS Signed Date of Exam:12/11/22 FEMUR 2 VIEW LEFT CLINICAL HISTORY: Left leg pain and swelling. Injury. COMPARISON: None. TECHNIQUE: 3 views of the left femur. FINDINGS: There is no acute fracture or dislocation of the left femur. Alignment is anatomic. The imaged joint spaces are preserved. No suspicious focal osseous lesion. There is generalized edema in the left lower extremity. IMPRESSION: 1. No acute fracture or dislocation in the left femur. Please note the left knee is not well characterized on this exam. If there is localized left knee pain consider dedicated radiographs of the left knee to further evaluate. 2. Edema in the visualized left lower extremity. Dictated by: Dictated on workstation # [id number] Dict: 12/11/22 1301 Trans: 12/11/22 1306 [facility] [id number] Interpreted by: KILLIAN CHATMAN DO Electronically signed by: KILLIAN CHATMAN DO 12/11/22 1306 NAME: SYLVESTER GONZALEZ [facility] REC#: [id number] PT STATUS: REG ER : 1940 PHYSICIAN: LUIS CARLOS DEAN MD ADMIT DATE: 12/11/22/ER FS Signed Date of Exam:12/11/22 TIBIA FIBULA 2 VIEW LEFT CLINICAL HISTORY: Left leg pain. COMPARISON: None. TECHNIQUE: 2 views of the left tibia and fibula. FINDINGS: There is no acute fracture or dislocation of the left tibia and fibula. Alignment is anatomic. The imaged joint spaces are preserved. No focal osseous lesions are seen. There is generalized soft tissue edema in the left lower extremity. IMPRESSION: 1. No acute fracture or dislocation in the left tibia and fibula. 2. Soft tissue edema in the left lower extremity. Dictated by: Dictated on workstation # [id number] Dict: 12/11/22 1259 Trans: 12/11/22 1303 [facility] [id number] Interpreted by: KILLIAN CHATMAN DO Electronically signed by: KILLIAN CHATMAN DO 12/11/22 1303 Assessment/Plan Admission Diagnosis Sepsis w/ shock Assessment and Plan Sepsis w/ shock -Source: thought to be from LLE celleulitis vs decubitis ulcer. UTI ruled out. -Vanc/Zosyn for broad coverage and IVF. Levophed as needed for MAP <65 with goal to titrate off -Consider CXR although vitals and exam are unremarkable. -consult wound care for decubitis ulcer LLE DVT -Therapeutic lovenox renally dosed [place] -Cr improved this morning to 2.11 from 2.41 yesterday. Unclear what patient's baseline Cr due to no prior visits Gout -Patient had significant pitting edema left leg but minimal cellulitis on time of exam. She was markedly tender to palpation of left knee. May consider giving steroids to see if it helps improve pain. since her pain seems localized to the left knee. Was given 15mg Ketorolac IV yesterday. Will avoid more at this time due to Cr Hypomagnesemia - Mg2+ of 1.1 this morning. Will replace although Cr > 2.0 per E-ICU recommen dations Clinical Quality Measures DVT/VTE Risk/Contraindication: Contraindications-Mechi: Other *list below* Other: dvt KATALINA CAVANAUGH DO 12/13/22 0608: Past Zaisolx-Kkirsb-Bsqmfw Hx Patient Social History Marrital Status: single Employed/Student: retired Smoking Status: Unknown if Ever Smoked Past Medical History Dementia Renal Failure Review of Systems Constitutional: see HPI Physical Exam Physical Exam General Appearance: No Apparent Distress, Chronically ill Respiratory: Lungs Clear, Normal Breath Sounds Neurologic/Psychiatric: Alert, Disoriented Assessment/Plan Admission Diagnosis Hypotension without evidence of sepsis Right leg DVT Dementia Severe debility CHARLOTTE CKD Admission Status: Inpatient Order (span 2 midnights) Reason for Inpatient Admission: hypotension with pressors required in ICU Supervisory-Addendum Brief Verification & Attestation Participated in pt care: history, MDM, physical Personally performed: exam, history, MDM, supervision of care Care discussed with: Medical Student Procedures: n/a Results interpretation: Verified all documentation Verification and Attestation of Medical Student E/M Service A medical student performed and documented this service in my presence. I reviewed and verified all information documented by the medical student and made modifications to such information, when appropriate. I personally performed the physical exam and medical decision making. Katalina Cavanaugh, Dec 13, 2022,06:08 KELVIN DUFF Dec 12, 2022 13:36 KATALINA CAVANAUGH DO Dec 13, 2022 06:08
[2022-12-12] MEDS: ENOXAPARIN 120 MG/0.8 ML (LOVENOX) SQ SCH (14:13)
[2022-12-12] MEDS: VANCOMYCIN 1 GM/NS 250 ML IVPB IV SCH ×2 (14:13)
[2022-12-12 15:56] VITALS: BP 102/50
--- NOTE | 2022-12-12 16:22 | Occupational Therapy Eval ---
OT Evaluation-General/PLF Medical Diagnosis Admission Date Dec 11, 2022 at 16:08 Medical Diagnosis: sepsis/cellulitis Onset Date: Dec 11, 2022 Therapy Diagnosis Therapy Diagnosis: weakness/debility Precautions Precautions/Isolations: Fall Prevention, Standard Precautions Weight Bear Status Weight Bearing Restriction: Full Weight Bearing Referral Referral Reason: Activity Tolerance, Self Care, Evaluation/Treatment Medical History Additional Medical History Stage II decubi on B feet, and bottom, Gluteal fold yeast, hand tremors, obesity Current History Lives at home w/ family/assistance, low motivation at home, minimal mobility, primary setting in home is lift recliner. On admission PATIENT HAS STAGE II SKIN BREAKDOWN RELATED TO MASD AND BODY HABITUS IN ALL BODY FOLDS. THERE IS SKIN DUSKINESS TO GLUTEAL CLEFT AND GLUTEAL FOLDS. THE SKIN IS PEELING AND FRIABLE, YEASTY ODOR NOTED DURING CLEANSING. PATIENT IS INCONTINENT OF BOWEL Reviewed History: Yes Social History Home: Single Level Current Living Status: Other Family Entry Into Home: Ramp, Level Entry ADL-Prior Level of Function SCALE: Activities may be completed with or without assistive devices. 9-Rmlidqclel-rqlmewy completes the activity by him/herself with no assistance from a helper. 5-Set-up or Clean-up Assistance-helper sets up or cleans up; patient completes activity. [place] assists only prior to or following the activity. 4-Supervision or Touching Assistance-helper provides verbal cues and/or touching/steadying and/or contact guard assistance as patient completes activity. Assistance may be provided throughout the activity or intermittently. 3-Partial/Moderate Assistance-helper does LESS THAN HALF the effort. [place] lifts, holds or supports trunk or limbs, but provides less than half the effort. 2-Substantial/Maximal Assistance-helper does MORE THAN HALF the effort. [place] lifts or holds trunk or limbs and provides more than half the effort. 3-Mkbxpsdqg-qfphsg does ALL the effort. Patient does none of the effort to complete the activity. Or, the assistance of 2 or more helpers is required for the patient to complete the activity. If activity was not attempted, code reason: 7-Patient Refused. 9-Not Applicable-not attempted and the patient did not perform the activity before the current illness, exacerbation or injury. 10-Not Attempted due to Environmental Limitations-(lack of equipment, weather restraints, etc.). 88-Not Attempted due to Medical Conditions or Safety Concerns. Self Care: Needed Some Help Functional Cognition: Needed Some Help DME/Equipment: Toilet/Riser DME/Equipment Comments WC, FWW, RTS, lift chair Drive Self: No OT Current Status Subjective Agreeable to OT eval, family in room, patient hollers out "ouch" and "that hurts" w/o physical contact performed by OT, OT calms patient to determine hollers are in anticipation of maybe ROM will hurt. Mental Status/Objective Patient Orientation: Person, Place, Eyes Open (closes eyes when asked to perf orm task, behavior resolves as evaluation progresses), Situation Attachments: IV, Oxygen, SCD's, Telemetry Current Upper Extremity ROM limited by excessive soft tissue, reduced joint approximation, 90 shoulder flexion BUE Upper Extremity Coordination bilateral hand tremors. family report tremors are long standing but unknown etiology, rock cutter +3/5 Upper Extremity Sensation inconsistent as every touch patient hollers "OUCH" Upper Extremity Strength -3/5, unable to hold own weight bed sidelying, unable to sidelying to push to sitting. ADL-Treatment Eating (QC): 5 (hand tremors, able to insert straw into styrofaom lid/cup and reach from bed tray table on left side of bed) Oral Hygiene (QC): 4 Shower/Bathe Self (QC): 88 (wounds) Upper Body Dressing (QC): 2 Lower Body Dressing (QC): 1 On/Off Footwear (QC): 1 Toileting Hygiene (QC): 1 Education OT Patient Education: Correct positioning, Disease process, Exercise program, Modified ADL techniques, Progress toward Goal/Update tx plan, Purpose of tx/functional activities, Reviewed precautions, Rehab process, Safety issues, Transfer techniques, Use of adapted equipment Teaching Recipient: Patient, Family Teaching Methods: Demonstration Response to Teaching: Verbalize Understanding, Reinforcement Needed OT Observation Assistant Goals Observation Assistant Goals Eating (QC): 6 Oral Hygiene (QC): 6 Toileting Hygiene (QC): 4 Shower/Bathe Self (QC): 3 Upper Body Dressing (QC): 4 Lower Body Dressing (QC): 4 On/Off Footwear (QC): 4 1=Demonstrate adherence to instructed precautions during ADL tasks. 2=Patient will verbalize/demonstrate understanding of assistive devices/modifications for ADL. 3=Patient will improve strength/tolerance for activity to enable patient to perform ADL's. OT Education/Plan Problem List/Assessment Assessment: Decreased Activ Tolerance, Decreased UE Strength, Dependent Transfers, Edema, Impaired Bed Mobility, Impaired Coordination, Impaired Funct Balance, Impaired Self-Care Skills, Restricted Funct UE ROM Discharge Recommendations Plan/Recommendations: Continue POC Treatment Plan/Plan of Care Treatment,Training & Education: Yes Patient would benefit from OT for education, treatment and training to promote independence in ADL's, mobility, safety and/or upper extremity function for ADL's. Plan of Care: ADL Retraining, Caregiver Training, Concurrent Therapy, Functional Mobility, Group Exercise/Act as Ind, UE Funct Exercise/Act, UE Neuromus Re-Ed/Coord Treatment Duration: Dec 22, 2022 Frequency: 3 times per week (3-5 times per week) Estimated Hrs Per Day: .25 hour per day Agreement: Yes Rehab Potential: Guarded Remains in reclined position offloaded from right side of body, family in room, all needs met Time Start Time: 13:30 Stop Time: 13:43 DATE: Dec 12, 2022 Total Time Billed (hr/min): 13 Billed Treatment Time [facility] 13 min TRAVON PEDRO OT Dec 12, 2022 16:22
[2022-12-12 20:18] VITALS: BP 96/64
[2022-12-12 23:18] VITALS: BP 86/45
[2022-12-12] MEDS: ACETAMINOPHEN 325 MG TABLET PO PRN (23:21)
[2022-12-13] VITALS (14 sets, daily range): BP systolic 70–136; BP diastolic 39–78
[2022-12-13] MEDS: MIDODRINE 10 MG (PROAMATINE) TAB PO SCH ×4 (00:03→17:15)
[2022-12-13] MEDS ORDERED: NS IV 1000 ML 1,000 ML IV SCH (02:15)
[2022-12-13] MEDS ORDERED: NS IV 1000 ML 1,000 ML ONE (02:16)
[2022-12-13] MEDS: PIPERACILLIN SODIUM/TAZOBACTAM 4.5 GM in NS (IVPB) 100 ML IV SCH ×3 (05:39→19:41)
[2022-12-13 05:45] LABS: BASOPHILS % (AUTO) 0 % (0-10); EOSINOPHILS # (AUTO) 0.3 10^3/uL (0.0-0.3); EOSINOPHILS % (AUTO) 2 % (0-10); HEMATOCRIT 27 % (35-52); HEMOGLOBIN 8.8 g/dL (11.5-16.0); LYMPHOCYTES # (AUTO) 0.9 10^3/uL (1.0-4.0); LYMPHOCYTES % (AUTO) 7 % (12-44); MEAN CORPUSCULAR HEMOGLOBIN 29 pg (25-34); MEAN CORPUSCULAR HGB CONC 33 g/dL (32-36); MEAN CORPUSCULAR VOLUME 91 fL (80-99); MEAN PLATELET VOLUME 10.1 fL (9.0-12.2); MONOCYTES # (AUTO) 1.4 10^3/uL (0.0-1.0); MONOCYTES % (AUTO) 11 % (0-12); NEUTROPHILS # (AUTO) 10.5 10^3/uL (1.8-7.8); NEUTROPHILS % (AUTO) 79 % (42-75); PLATELET COUNT 214 10^3/uL (130-400); WHITE BLOOD COUNT 13.3 10^3/uL (4.3-11.0)
[2022-12-13 06:03] LABS: POTASSIUM 4.1 MMOL/L (3.6-5.0)
[2022-12-13 06:04] LABS: CALCIUM 7.6 MG/DL (8.5-10.1)
[2022-12-13 06:05] LABS: TOTAL PROTEIN 4.4 GM/DL (6.4-8.2)
[2022-12-13 06:07] LABS: BILIRUBIN,TOTAL 0.6 MG/DL (0.1-1.0)
[2022-12-13 06:09] LABS: CREATININE SERUM 2.19 MG/DL (0.60-1.30)
[2022-12-13 06:11] LABS: MAGNESIUM 2.7 MG/DL (1.6-2.4)
[2022-12-13] MEDS ORDERED: NS IV 500 ML 500 ML IV PRN (07:45)
[2022-12-13] MEDS: DOCUSATE SODIUM 100 MG (COLACE) CAP PO SCH ×2 (08:07→19:41)
[2022-12-13] MEDS: LEVOTHYROXINE 50 MCG (LEVOTHROID) TAB PO SCH (08:36)
[2022-12-13] MEDS: MICONAZOLE 2% POWDER (DESENEX AF) 90 GM TOP SCH ×2 (08:36→21:32)
--- NOTE | 2022-12-13 09:57 | Progress Note - Hospitalist ---
KELVIN DUFF 12/13/22 0956: Subjective HPI/CC On Admission Date Seen by Provider: Dec 13, 2022 Time Seen by Provider: 08:50 This patient is an 82 year old female with history of Gout, HTN, HLD, Osteoarthritis, Obesity, and possible hypothyroidism who presented to [place] ED yesterday for severe left leg pain that was hindering ability to walk at home. She is normally independent with a walker and was not able to walk due to the pain. Upon arriving at the ED the patient was afebrile, tachycardic, normotensive, and tolerating RA. She was found to have WBC of 19, CRP 16.7, CR 2.41, and LA 1.62. X-rays of left femur & Tib/fib were negative. venous ultrasound revelaed moderate burden non occlusive DVT of LLE venous systm. She was also found to have a stage 2 decubitis ulcer per ED notes and while waiting to be admitted to [facility], she developed hypotension with systolic 70-85. She was started on Vanc and Zosyn for broad spectrum coverage, therapuetic lovenox for DVT, and admitted to the ICU where she required levophed drip due to severl BP < MAP 65. When seen this morning patient was still on levophed at rate of 0.01 and was normotensive. She is alert to self and place but not year. She reports bilateral knee pain and denies LH, CP, SOB, Cough, abd pain, N/V/D. Subjective/Events-last exam Patient was awake lying in bed when seen this morning. She continues to be alert to self and place but not time. She was moved from the ICU to the medical floor yesterday after it was thought her BP was teodora off the drip. Over night it appears that she was having rather marked hypotension with MAP frequently in the 50's and systolic in 70's. She has been receiving IVF's. She did get up to the commode with nursing this morning which reports patient is rather unstable on her feet at this time. She has a mittal catheter in place with clear yellow urine. She reports left knee pain is unchanged and rates it at 10/10 pain. She denies pain elsewhere and is not having any LH, Dizziness, CP, palpitations, SOB, or abd pain. Review of Systems General: No Chills HEENT: No Visual Changes Pulmonary: No Dyspnea, No Cough Cardiovascular: No: Chest Pain, Palpitations Gastrointestinal: No: Nausea, Vomiting, Abdominal Pain Genitourinary: Other (mittal in palce) Musculoskeletal: leg pain (06/18 left knee pain reported) Neurological: No: Weakness, Numbness Focused Exam Lactate Level 12/11/22 14:10: Lactic Acid Level 1.62 Objective Exam Vital Signs Vital Signs Date Time Temp Pulse Resp B/P (MAP) Pulse Ox O2 Delivery O2 Flow Rate FiO2 12/13/22 10:58 36.9 80 18 104/53 (70) 97 Room Air 12/11/22 19:19 21 Capillary Refill : Less Than 3 Seconds General Appearance: No Apparent Distress, WD/WN, Obese HEENT: Moist Mucous Membranes Respiratory: Chest Non Tender, Lungs Clear, Normal Breath Sounds, No Accessory Muscle Use, No Respiratory Distress Cardiovascular: Regular Rate, Rhythm, No Murmur, Normal Peripheral Pulses Gastrointestinal: Normal Bowel Sounds, Non Tender, Soft Extremity: Normal Capillary Refill, Other (1+ pitting edema left leg with diminished pedal pulse. markedly tender to palpation of knee and surrounding structures. Right leg no edema and 2+ pedal pulse.) Neurologic/Psychiatric: Alert, No Motor/Sensory Deficits, Other (unclear what patient's bas emental status is) Skin: Normal Color, Warm/Dry Lymphatic: No Adenopathy Results/Procedures Lab Laboratory Tests 12/13/22 05:07 Patient resulted labs reviewed. Imaging: Reviewed Imaging Report Assessment/Plan Assessment and Plan Assess & Plan/Chief Complaint Sepsis w/ shock -Source: thought to be from LLE celleulitis vs decubitis ulcer. UTI & pna ruled out. -Vanc/Zosyn for broad coverage and IVF. consult wound care for decubitis ulcer. -(12/13) patient has been off levo since yesterday morning and is having some soft pressures (as low as MAP in the 50's). Will continue IVF's at this time but may need to be transferred back to ICU and placed back on levophed drip if condition doesn't improve. Will start hydrocortisone 50mg Q8 for BP & possible acute gout flare LLE DVT - Continue Therapeutic lovenox renally dosed. Swelling in LLE appears mildl improved [place] -Cr mostly unchanged from yesterday. Down from admission Cr of 2.41 Unclear what patient's baseline Cr due to no prior visits Gout -Patient still having pitting edema, but no cellulitis appreciated on exam. She continues to be markedly tender to palpation of left knee. Initiating Hydrocortisone 50mg Q8 for potential acute gout flair and hypotension. Hypomagnesemia - /4 Mg2+ of 1.1. Mg2+ replaced despite Cr > 2.0 per E-ICU recommendations. will monitor. Hypothyroidism -Levothyroxine DVT Proph: Lovenox Diet: as tolerated Clinical Quality Measures DVT/VTE Risk/Contraindication: Contraindications-Mechi: Other *list below* Other: dvt KATALINA CAVANAUGH DO 12/14/22 0455: Subjective Review of Systems General: Fatigue, Malaise Objective Exam General Appearance: No Apparent Distress, WD/WN, Chronically ill, Obese Respiratory: Lungs Clear, Normal Breath Sounds Cardiovascular: Regular Rate, Rhythm Neurologic/Psychiatric: Alert, No Motor/Sensory Deficits Supervisory-Addendum Brief Verification & Attestation Participated in pt care: history, MDM, physical Personally performed: exam, history, MDM, supervision of care Care discussed with: Medical Student Procedures: n/a Results interpretation: Verified all documentation Verification and Attestation of Medical Student E/M Service A medical student performed and documented this service in my presence. I reviewed and verified all information documented by the medical student and made modifications to such information, when appropriate. I personally performed the physical exam and medical decision making. Katalina Cavanaugh, Dec 14, 2022,04:53 KELVIN DUFF Dec 13, 2022 09:56 KATALINA CAVANAUGH DO Dec 14, 2022 04:55
[2022-12-13] MEDS: ACETAMINOPHEN 325 MG TABLET PO PRN (10:29)
--- NOTE | 2022-12-13 10:42 | Physical Therapy Evaluation ---
PT Evaluation-General Medical Diagnosis Admission Date Dec 11, 2022 at 16:08 Medical Diagnosis: sepsis/cellulitis Onset Date: Dec 11, 2022 Therapy Diagnosis Therapy Diagnosis: severe debility/weakness Precautions Precautions/Isolations: Fall Prevention, Standard Precautions Referral Physician: Gemma Reason for Referral: Evaluation/Treatment Medical History Pertinent Medical History: HTN Additional Medical History gout/morbid obesity Current History EMS secondary to right LE edema/redness and pain Reviewed History: Yes Social History Home: Single Level Current Living Status: Other Family Entry Into Home: Ramp, Level Entry Prior Prior Level of Function SCALE: Activities may be completed with or without assistive devices. 5-Kosknlujkk-mxxltbl completes the activity by him/herself with no assistance from a helper. 5-Set-up or Clean-up Assistance-helper sets up or cleans up; patient completes activity. [place] assists only prior to or following the activity. 4-Supervision or Touching Assistance-helper provides verbal cues and/or touching/steadying and/or contact guard assistance as patient completes activity. Assistance may be provided throughout the activity or intermittently. 3-Partial/Moderate Assistance-helper does LESS THAN HALF the effort. [place] lifts, holds or supports trunk or limbs, but provides less than half the effort. 2-Substantial/Maximal Assistance-helper does MORE THAN HALF the effort. [place] lifts or holds trunk or limbs and provides more than half the effort. 7-Yvxyjuqpc-cicezd does ALL the effort. Patient does none of the effort to complete the activity. Or, the assistance of 2 or more helpers is required for the patient to complete the activity. If activity was not attempted, code reason: 7-Patient Refused. 9-Not Applicable-not attempted and the patient did not perform the activity before the current illness, exacerbation or injury. 10-Not Attempted due to Environmental Limitations-(lack of equipment, weather restraints, etc.). 88-Not Attempted due to Medical Conditions or Safety Concerns. Bed Mobility: 2 Transfers (B,C,W/C): 2 Gait: 2 Indoor Mobility (Ambulation): Needed Some Help Prior Devices Use: Walker PT Evaluation-Current Subjective Patient agrees to PT. Noted incontinent BM Objective Patient Orientation: Person, Time Attachments: Bustos Catheter, IV ROM/Strength ROM Lower Extremities bilateral LE limited due to pain and swelling Strength Lower Extremities 3-/5 grossly bilateral LE all planes Integumentary/Posture Integumentary refer to nursing notes Bowel Incontinence: Yes Bladder Incontinence: Bustos Cath Posture trunk flexed posture Neuromuscular (Tone, Coordination, Reflexes) diminished coordination Sensory Vision: Wears Glasses Hearing: Impaired Transfers Roll Left to Right (QC): 1 (x 2) Sit to Lying (QC): 1 (x 2) Lying to Sitting/Side of Bed(Q: 1 (x 2) Sit to Stand (QC): 1 (x 2) Toilet Transfer (QC): 1 (x 2) Gait Does the Patient Walk?: No and Walking Goal IS indicated Walk 10 feet (QC): 88 Balance Sitting Static: Fair Sitting Dynamic: Fair Standing Static: Poor Standing Dynamic: Poor Assessment/Needs Patient will benefit from skilled PT to address functional strength and mobility to improve current LOF. Patient is currently dependent assist of multiple staff. Rehab Potential: Guarded PT Half-Way Goals Supervisor Mapping Goals PT Half-Way Goals Time Frame: Dec 29, 2022 Roll Left & Right (QC): 3 Sit to Lying (QC): 3 Lying-Sitting on Side/Bed(QC): 3 Sit to Stand (QC): 3 Chair/Ndf-pl-Ycgpq Xfer(QC): 3 Toilet Transfer (QC): 3 Walk 10 feet (QC): 3 PT Plan Problem List Problem List: Activity Tolerance, Functional Strength, Safety, Balance, Gait, Transfer, Bed Mobility Treatment/Plan Treatment Plan: Continue Plan of Care Treatment Plan: Bed Mobility, Education, Functional Activity Gerard, Functional Strength, Gait, Safety, Therapeutic Exercise, Transfers Treatment Duration: Dec 29, 2022 Frequency: 6 times per week Estimated Hrs Per Day: .25 hour per day Patient and/or Family Agrees t: Yes Time Time In: 750 Time Out: 827 DATE: Dec 13, 2022 Total Billed Treatment Time: 37 Total Billed Treatment 1 visit EVModC 20 min FA 17 min KEVIN SANTA PT Dec 13, 2022 10:41
[2022-12-13] MEDS: HYDROCORTISONE 100 MG/2 ML (Solu-CORTEF) VIAL IV SCH ×2 (11:29→15:00)
--- NOTE | 2022-12-13 11:59 | Occ Therapy Progress Note ---
Therapy Progress Note OT attempted to see patient for therapy is am, patient declined reporting that she had a BM episode and was not mentally prepared for OT and come back later, OT noted BP changes and consulted Tereza, per Nurse request no OOB activity. OT returned later in morning for therapy and Patient cries when OT initiated chair position for feeding noon meal, OT recommends patient feed self and not visitor, patient declined session and OT will return once more today if available to continue POC TRAVON HARTLEY OT Dec 13, 2022 11:59
[2022-12-13] MEDS ORDERED: TROUGH ORDER-PHARMACY XX NR (13:00)
[2022-12-13] MEDS: ENOXAPARIN 120 MG/0.8 ML (LOVENOX) SQ SCH (15:00)
[2022-12-13] MEDS: VANCOMYCIN 1 GM/NS 250 ML IVPB IV SCH ×2 (15:08)
[2022-12-13] MEDS ORDERED: VANCOMYCIN 1 GM/NS 250 ML IVPB IV SCH ×2 (17:00)
[2022-12-14] MEDS: HYDROCORTISONE 100 MG/2 ML (Solu-CORTEF) VIAL IV SCH ×2 (00:36→06:22)
[2022-12-14] MEDS: MIDODRINE 10 MG (PROAMATINE) TAB PO SCH ×3 (00:36→08:24)
[2022-12-14 03:41] VITALS: BP 100/62
[2022-12-14 05:50] LABS: BASOPHILS % (AUTO) 0 % (0-10); EOSINOPHILS % (AUTO) 0 % (0-10); HEMATOCRIT 29 % (35-52); HEMOGLOBIN 9.4 g/dL (11.5-16.0); LYMPHOCYTES # (AUTO) 0.8 10^3/uL (1.0-4.0); LYMPHOCYTES % (AUTO) 6 % (12-44); MEAN CORPUSCULAR HEMOGLOBIN 29 pg (25-34); MEAN CORPUSCULAR HGB CONC 32 g/dL (32-36); MEAN CORPUSCULAR VOLUME 90 fL (80-99); MEAN PLATELET VOLUME 10.3 fL (9.0-12.2); MONOCYTES # (AUTO) 0.8 10^3/uL (0.0-1.0); MONOCYTES % (AUTO) 6 % (0-12); NEUTROPHILS # (AUTO) 11.4 10^3/uL (1.8-7.8); NEUTROPHILS % (AUTO) 87 % (42-75); PLATELET COUNT 264 10^3/uL (130-400); WHITE BLOOD COUNT 13.1 10^3/uL (4.3-11.0)
[2022-12-14] MEDS ORDERED: ATOR20TA66 PO (05:57)
[2022-12-14] MEDS ORDERED: AMOX1TAB12 PO (05:57)
[2022-12-14] MEDS ORDERED: RIVA15TA2 PO (05:57)
[2022-12-14] MEDS ORDERED: MICO90PO TOP (05:57)
[2022-12-14] MEDS ORDERED: HYDR5TAB14 PO (05:57)
[2022-12-14] MEDS ORDERED: LEVO50TA6 PO (05:57)
[2022-12-14] MEDS ORDERED: MIDO10TA PO (05:57)
[2022-12-14] MEDS ORDERED: DOCU100C37 PO (05:57)
--- NOTE | 2022-12-14 05:58 | Discharge Inst-Skilled Nursing ---
Discharge Inst-Skilled NF Reconcile Patient Problems Problems Reviewed?: Yes Chief Complaint This patient is an 82 year old female with history of Gout, HTN, HLD, Osteoarthritis, Obesity, and possible hypothyroidism who presented to [place] ED yesterday for severe left leg pain that was hindering ability to walk at home. She is normally independent with a walker and was not able to walk due to the pain. Upon arriving at the ED the patient was afebrile, tachycardic, normotensive, and tolerating RA. She was found to have WBC of 19, CRP 16.7, CR 2.41, and LA 1.62. X-rays of left femur & Tib/fib were negative. venous ultrasound revelaed moderate burden non occlusive DVT of LLE venous systm. She was also found to have a stage 2 decubitis ulcer per ED notes and while waiting to be admitted to [facility], she developed hypotension with systolic 70-85. She was started on Vanc and Zosyn for broad spectrum coverage, therapuetic lovenox for DVT, and admitted to the ICU where she required levophed drip due to severl BP < MAP 65. When seen this morning patient was still on levophed at rate of 0.01 and was normotensive. She is alert to self and place but not year. She reports bilateral knee pain and denies LH, CP, SOB, Cough, abd pain, N/V/D. Patient Instructions Patient Problems: DVT Orthostasis Debility Consult/Follow Up/Orders Follow Up Appt.: [facility] rounds Skilled NF Admit to: Certification (SNF) I certify that SNF services are required to be given on an inpatient basis because of the above named patient's need for senior living care on a continuing basis for the conditions(s) for which he/she was receiving inpatient hospital services prior to his/her transfer to the SNF. Snf Facility Order: Nursing Services, [employer] Supervisor-Evaluate & Treat, Physical Therapy-Evaluate & Treat, Speech Language-Evaluate & Treat Oxygen Delivery Method: Room Air Discharge Diet: No Restrictions Resuscitation Status: Full Code New & Resume Previous Orders New Medications: Hydrocortisone (Hydrocortisone) 5 Mg Tablet 5 MG PO BID, #14 TAB Amoxicillin/Potassium Clav (Amox Tr-K Clv 875-125 mg Tab) 875 Mg-125 Mg Tablet 875 MG PO BID WITH MEALS, #6 TAB Docusate Sodium (Docusate Sodium) 100 Mg Capsule 100 MG PO BID, #60 CAP Miconazole Nitrate (Lotrimin AF) 2 % Powder 0 GM TOP BID, #1 EA tiwce daily in abd folds Midodrine HCl (Midodrine HCl) 10 Mg Tablet 10 MG PO TID, #90 TAB Rivaroxaban (Xarelto Tablet) 15 Mg Tablet 15 MG PO BID@0700,1900, #72 TAB Continued Medications: Atorvastatin Calcium (Atorvastatin Calcium) 20 Mg Tablet 20 MG PO HS, #30 TAB (This prescription has been renewed) Levothyroxine Sodium (Levothyroxine Sodium) 50 Mcg Tablet 50 MCG PO DAILY, #30 TAB (This prescription has been renewed) Discontinued Medications: Furosemide (Furosemide) 40 Mg Tablet 40 MG PO DAILY, TAB Lisinopril (Lisinopril) 5 Mg Tablet 5 MG PO DAILY, TAB Meloxicam (Meloxicam) 15 Mg Tablet 15 MG PO DAILY PRN for PAIN BREAKTROUGH, TAB Katalina Menendez Dec 14, 2022 05:57 KATALINA MENENDEZ DO Dec 14, 2022 05:58
--- NOTE | 2022-12-14 05:58 | Discharge Summary ---
Discharge Summary Hospital Course Was the Problem List Reviewed?: Yes Problems/Dx: (1) Deep vein thrombosis (DVT) of left lower extremity Status: Acute Qualifiers: Qualified Codes: I82.492 - Acute embolism and thrombosis of other specified deep vein of left lower extremity (2) Acute kidney injury (nontraumatic) Status: Acute (3) Decubitus ulcer of buttock Status: Acute Qualifiers: Qualified Codes: L89.302 - Pressure ulcer of unspecified buttock, stage 2 (4) Sepsis Status: Acute Qualifiers: Qualified Codes: A41.9 - Sepsis, unspecified organism; R65.21 - Severe sepsis with septic shock; N17.9 - Acute kidney failure, unspecified (5) Dehydration Status: Acute Hospital Course Date of Admission: Dec 11, 2022 at 16:08 Admission Diagnosis : Family Physician/Provider: Rocío Garcia Tutorial Laboratory Supervisor Date of Discharge: 12/14/22 Discharge Diagnosis: [ ] Hospital Course: Hospital Course Patient is an 82 year old female who was admitted to [facility] from 12/11-12/14 for sepsis 2nd to LLE cellulitis vs decubitis ulcer w/ shock, bacteremia, and non-occlusive DVT of LLE. During her stay she required a brief stay in the ICU for BP support with levophed. She was treated with IV abx with vanc & zosyn and her cellulitis and labwork improved. She received therapeutic lovenox for her non-occlusive DVT of LLE and had an improvement in swelling, although continued to have left knee pain. After a brief stay in the ICU she was transferred to the medical floor where she continued to receive abx and lovenox. She did have low BP's while on the floor but eventually stabilized with IVF, midrodine, and hydrocortisone. By time of D/C patientt continued to have some LLE swelling and pain, but labwork had improved, vitals were stable, and she was determined safe to manage in the outpatient setting. KELVIN DUFF Labs and Pending Lab Test: Laboratory Tests 12/13/22 10:52: Glucometer 132H 12/13/22 14:24: Vancomycin Level Trough 17.6 12/13/22 16:16: Glucometer 234H 12/13/22 21:02: Glucometer 255H 12/14/22 05:11: Glucometer 184H 12/14/22 05:22: White Blood Count 13.1H, Red Blood Count 3.22L, Hemoglobin 9.4L, Hematocrit 29L, Mean Corpuscular Volume 90, Mean Corpuscular Hemoglobin 29, Mean Corpuscular Hemoglobin Concent 32, Red Cell Distribution Width 14.7H, Platelet Count 264, Mean Platelet Volume 10.3, Immature Granulocyte % (Auto) 1, Neutrophils (%) (Auto) 87H, Lymphocytes (%) (Auto) 6L, Monocytes (%) (Auto) 6, Eosinophils (%) (Auto) 0, Basophils (%) (Auto) 0, Neutrophils # (Auto) 11.4H, Lymphocytes # (Auto) 0.8L, Monocytes # (Auto) 0.8, Eosinophils # (Auto) 0.0, Basophils # (Auto) 0.0, Immature Granulocyte # (Auto) 0.1, Neutrophils % (Manual) [Pending], Sodium Level [Pending], Potassium Level [Pending], Chloride Level [Pending], Carbon Dioxide Level [Pending], Anion Gap [Pending], Blood Urea Nitrogen [Pending], Creatinine [Pending], BUN/Creatinine Ratio [Pending], Glucose Level [Pending], Calcium Level [Pending], Corrected Calcium [Pending], Magnesium Level [Pending], Total Bilirubin [Pending], Aspartate Amino Transf (AST/SGOT) [Pending], Alanine Aminotransferase (ALT/SGPT) [Pending], Alkaline Phosphatase [Pending], Total Protein [Pending], Albumin [Pending] Microbiology 12/11/22 MRSA Screen - Final, Complete No growth 12/11/22 Blood Culture - Preliminary, Resulted No growth Home Meds Active Hydrocortisone 5 Mg Tablet 5 Mg PO BID Lotrimin AF (Miconazole Nitrate) 2 % Powder 0 Gm TOP BID tiwce daily in abd folds Docusate Sodium 100 Mg Capsule 100 Mg PO BID Xarelto Tablet (Rivaroxaban) 15 Mg Tablet 15 Mg PO BID@0700,1900 Midodrine HCl 10 Mg Tablet 10 Mg PO TID Amox Tr-K Clv 875-125 mg Tab (Amoxicillin/Potassium Clav) 875 Mg-125 Mg Tablet 875 Mg PO BID WITH MEALS Levothyroxine Sodium 50 Mcg Tablet 50 Mcg PO DAILY Atorvastatin Calcium 20 Mg Tablet 20 Mg PO HS Reported Meloxicam 15 Mg Tablet 15 Mg PO DAILY PRN Furosemide 40 Mg Tablet 40 Mg PO DAILY Lisinopril 5 Mg Tablet 5 Mg PO DAILY Assessment/Pt Instructions NH rounds Discharge Planning: <30 minutes discharge planning Discharge Instructions Discharge Diet: No Restrictions Activity as Tolerated: Yes Discharge Physical Examination Vital Signs Vital Signs Date Time Temp Pulse Resp B/P (MAP) Pulse Ox O2 Delivery O2 Flow Rate FiO2 12/14/22 03:41 37.0 85 16 100/62 (75) 95 Room Air 12/11/22 19:19 21 General Appearance: No Apparent Distress, WD/WN, Chronically ill Allergies: Coded Allergies: No Known Drug Allergies (Unverified , 07/11/22) Discharge Summary Date of Admission Dec 11, 2022 at 16:08 Date of Discharge Discharge Date: Dec 14, 2022 Admission Diagnosis Hypotension without evidence of sepsis Right leg DVT Dementia Severe debility [place] CKD Discharge Diagnosis Clinical Quality Measures DVT/VTE Risk/Contraindication: Contraindications-Mechi: Other *list below* Other: dvt LOPEZ CAVANAUGH DO Dec 14, 2022 05:58
[2022-12-14] MEDS ORDERED: NS (IVPB) 100 ML ONE (06:03)
[2022-12-14] MEDS ORDERED: PIPERACILLIN/TAZO 4.5 GM VIAL (ZOSYN) IV ONE ×2 (06:03→06:04)
[2022-12-14 06:32] LABS: ALBUMIN 2.1 GM/DL (3.2-4.5); POTASSIUM 4.1 MMOL/L (3.6-5.0)
[2022-12-14 06:35] LABS: TOTAL PROTEIN 4.8 GM/DL (6.4-8.2)
[2022-12-14 06:37] LABS: BILIRUBIN,TOTAL 0.3 MG/DL (0.1-1.0)
[2022-12-14 06:38] LABS: CREATININE SERUM 2.28 MG/DL (0.60-1.30)
[2022-12-14 06:41] LABS: LYMPHOCYTES % (MANUAL) 5 %; MAGNESIUM 2.7 MG/DL (1.6-2.4); MONOCYTES % (MANUAL) 5 %; NEUTROPHILS % (MANUAL) 90 %; RBC MORPH NORMAL
[2022-12-14] MEDS ORDERED: RIVAROXABAN 15 MG TABLET (XARELTO) PO SCH (07:00)
[2022-12-14 07:30] VITALS: BP 120/57
[2022-12-14] MEDS ORDERED: AUGMENTIN 875 MG TAB (AMOXICILLIN/CLAVULANATE) PO SCH (08:00)
[2022-12-14] MEDS: ACETAMINOPHEN 325 MG TABLET PO PRN (08:23)
[2022-12-14] MEDS: DOCUSATE SODIUM 100 MG (COLACE) CAP PO SCH (08:24)
[2022-12-14] MEDS: LEVOTHYROXINE 50 MCG (LEVOTHROID) TAB PO SCH (08:24)
[2022-12-14] MEDS: MICONAZOLE 2% POWDER (DESENEX AF) 90 GM TOP SCH (08:25)
--- NOTE | 2022-12-14 08:42 | Occupational Ther Daily Note ---
OT Current Status-Daily Note Subjective Reclined in bed, finished breakfast, agreeable to OT however declines sitting EOB or any OOB activity ADL-Treatment NO ADLS performed, patient refuses to sit up in bed, refuses to attempt EOB activity, NO changes in ADLS, OT recommends mechanical lift for transfers Therapy Code Descriptions/Definitions Functional [place] Measure: 0=Not Assessed/NA 4=Minimal Assistance 1=Total Assistance 5=Supervision or Setup 2=Maximal Assistance 6=Modified [place] 3=Moderate Assistance 7=Complete IndependenceSCALE: Activities may be completed with or without assistive devices. 1-Agloylxmmz-moofjel completes the activity by him/herself with no assistance from a helper. 5-Set-up or Clean-up Assistance-helper sets up or cleans up; patient completes activity. [place] assists only prior to or following the activity. 4-Supervision or Touching Assistance-helper provides verbal cues and/or touching/steadying and/or contact guard assistance as patient completes activity. Assistance may be provided throughout the activity or intermittently. 3-Partial/Moderate Assistance-helper does LESS THAN HALF the effort. [place] lifts, holds or supports trunk or limbs, but provides less than half the effort. 2-Substantial/Maximal Assistance-helper does MORE THAN HALF the effort. [place] lifts or holds trunk or limbs and provides more than half the effort. 6-Axiqdomka-lrqcpm does ALL the effort. Patient does none of the effort to complete the activity. Or, the assistance of 2 or more helpers is required for the patient to complete the activity. If activity was not attempted, code reason: 7-Patient Refused. 9-Not Applicable-not attempted and the patient did not perform the activity before the current illness, exacerbation or injury. 10-Not Attempted due to Environmental Limitations-(lack of equipment, weather restraints, etc.). 88-Not Attempted due to Medical Conditions or Safety Concerns. dependent for ADLS, does feed self w/ tremor to hands, does wipe mouth and brush hair from face with hand Other Treatment Red medium resistance therapy band in reclined bed position for 10x3 R/L UE shoulder extension, elbow ext and abd/adduction exercise to facilitate BUE strength for transfer and ADLs Education OT Patient Education: Disease process, Exercise program, Modified ADL techni ques, Progress toward Goal/Update tx plan, Purpose of tx/functional activities, Reviewed precautions, Rehab process, Safety issues, Transfer techniques, Use of adapted equipment Teaching Recipient: Patient Teaching Methods: Demonstration, Discussion Response to Teaching: Reinforcement Needed OT Usp Goals Usp Goals Eating (QC): 6 Oral Hygiene (QC): 6 Toileting Hygiene (QC): 4 Shower/Bathe Self (QC): 3 Upper Body Dressing (QC): 4 Lower Body Dressing (QC): 4 On/Off Footwear (QC): 4 1=Demonstrate adherence to instructed precautions during ADL tasks. 2=Patient will verbalize/demonstrate understanding of assistive devices/modifications for ADL. 3=Patient will improve strength/tolerance for activity to enable patient to perform ADL's. OT Education/Plan Discharge Recommendations Plan/Recommendations: Continue POC Therapy Discharge Recommendati: Post Acute OT Treatment Plan/Plan of Care Patient would benefit from OT for education, treatment and training to promote independence in ADL's, mobility, safety and/or upper extremity function for ADL's. Plan of Care: ADL Retraining, Caregiver Training, Concurrent Therapy, Functional Mobility, Group Exercise/Act as Ind, UE Funct Exercise/Act, UE Neuromus Re-Ed/Coord Treatment Duration: Dec 22, 2022 Frequency: 3 times per week (3-5 times per week) Estimated Hrs Per Day: .25 hour per day Agreement: Yes Rehab Potential: Guarded Patient learned of ML-FC DC today an dis tearful, OT recommends mechaincal lift w/ sling for transfer to for DC transport. Patient does not stand Time Start Time: 08:20 Stop Time: 08:43 DATE: Dec 14, 2022 Total Time Billed (hr/min): 23 Billed Treatment Time EX 2 23 min TRAVON PEDRO OT Dec 14, 2022 08:42
[2022-12-14 11:30] VITALS: BP 120/57
--- NOTE | 2022-12-14 12:18 | Progress Note ---
KELVIN DUFF 12/14/22 1218: Progress Note Hospital Course Patient is an 82 year old female who was admitted to [facility] from 12/11-12/14 for sepsis 2nd to LLE cellulitis vs decubitis ulcer w/ shock, bacteremia, and non-occlusive DVT of LLE. During her stay she required a brief stay in the ICU for BP support with levophed. She was treated with IV abx with vanc & zosyn and her cellulitis and labwork improved. She received therapeutic lovenox for her non-occlusive DVT of LLE and had an improvement in swelling, although continued to have left knee pain. After a brief stay in the ICU she was transferred to the medical floor where she continued to receive abx and lovenox. She did have low BP's while on the floor but eventually stabilized with IVF, midrodine, and hydrocortisone. By time of D/C patientt continued to have some LLE swelling and pain, but labwork had improved, vitals were stable, and she was determined safe to manage in the outpatient setting. KATALINA CAVANAUGH DO 12/15/22 0651: Supervisory-Addendum Brief Verification & Attestation Participated in pt care: history, MDM, physical Personally performed: exam, history, MDM, supervision of care Care discussed with: Medical Student Procedures: n/a Results interpretation: Verified all documentation Verification and Attestation of Medical Student E/M Service A medical student performed and documented this service in my presence. I reviewed and verified all information documented by the medical student and made modifications to such information, when appropriate. I personally performed the physical exam and medical decision making. Katalina Cavanaugh Dec 15, 2022,06:51 KELVIN DUFF Dec 14, 2022 12:18 KATALINA CAVANAUGH DO Dec 15, 2022 06:51
[2022-12-15] MEDS ORDERED: TROUGH ORDER-PHARMACY XX NR (16:00)
== END 2022-12-14 11:15 | DRG 871 ==
LOC: EDUNIT# 12:14 → ER FS 12:16 → ICU 16:08 → 4TH 12-12 14:43
PROVIDERS: ADMIT Internal Medicine; ATTEND Internal Medicine
DX: A41.9 Sepsis, unspecified organism (principal); R65.21 Severe sepsis with septic shock; L03.116 Cellulitis of left lower limb; N17.9 Acute kidney failure, unspecified; I82.412 Acute embolism and thrombosis of left femoral vein; L89.322 Pressure ulcer of left buttock, stage 2; L89.312 Pressure ulcer of right buttock, stage 2; E86.0 Dehydration; F03.90 Unspecified dementia, unspecified severity, without behavioral disturbance, psychotic disturbance, mood disturbance, and anxiety; R53.81 Other malaise; N18.9 Chronic kidney disease, unspecified; M10.9 Gout, unspecified; M19.90 Unspecified osteoarthritis, unspecified site; E66.9 Obesity, unspecified; E78.00 Pure hypercholesterolemia, unspecified; E83.42 Hypomagnesemia
CPT/HCPCS: 36415; 36600; 51702; 71045; 73552; 73590; 80053; 80202; 81000; 82533; 82805; 82947; 83605; 83735; 84100; 84443; 85007; 85025; 85027; 86141; 87040; 87081; 87186

== ENCOUNTER → 2023-02-03 | Outpatient (CLI) | payer MEDICAID ==
[~2023-02-03] MED LIST changes: +AMOX1TAB12 PO; +ATOR20TA66 PO; +DOCU100C37 PO; +FURO40TA4 PO; +HYDR5TAB14 PO; +LEVO50TA6 PO; +LISI5TAB20 PO; +MELO15TA39 PO; +MICO90PO TOP; +MIDO10TA PO; +RIVA15TA2 PO
[2023-02-03 09:26] LABS: BILIRUBIN,TOTAL 0.2 MG/DL (0.1-1.0); CALCIUM 8.5 MG/DL (8.5-10.1); CREATININE SERUM 1.05 MG/DL (0.60-1.30)
[2023-02-03 09:27] LABS: ALBUMIN 2.4 GM/DL (3.2-4.5); TOTAL PROTEIN 5.6 GM/DL (6.4-8.2)
== END ==
PROVIDERS: ATTEND Nurse Practitioner Family
DX: R03.0 Elevated blood-pressure reading, without diagnosis of hypertension (principal)
CPT/HCPCS: 80053

== ENCOUNTER → 2023-03-25 | Outpatient (CLI) | payer MEDICAID ==
[~2023-03-25] MED LIST changes: +ACET325T38 PO; +COLC0.6T59 PO; +FURO20TA4 PO; +LOPE-175 PO; +MELA5TAB14 PO; +MICO85PO14 TP; +NYST60PO TP; +RIVA15TA PO; +TRAM50TA3 PO
== END ==
PROVIDERS: ATTEND Family Medicine
DX: R19.7 Diarrhea, unspecified (principal)
CPT/HCPCS: 87015; 87045; 87046; 87899

== ENCOUNTER 2023-04-04 13:58 | Emergency (ER) | payer MEDICAID ==
[~2023-04-04 13:58] MED LIST changes: +VANC125C5 PO
[2023-04-04] MEDS ORDERED: ETOMIDATE IV SOLN 20 MG/10 ML VIAL IV ONE (14:00)
[2023-04-04] MEDS ORDERED: ROCURONIUM 50 MG/5 ML (ZEMURON) VIAL IV ONE (14:00)
[2023-04-04] MEDS ORDERED: NS 1000 ML IV BAG IV ONE (14:00)
--- NOTE | 2023-04-04 14:16 | ED Neurological Problem ---
General Chief Complaint: Neuro-Stroke Like Symptoms Stated Complaint: STROKE-LIKE SYMPTOMS Source: EMS, RN notes reviewed Exam Limitations: clinical condition History of Present Illness Date Seen by Provider: Apr 04, 2023 Time Seen by Provider: 14:00 Initial Comments 82 yo F with h/o DVT on xarelto and recent history of admission to the hospital for C. difficile and elevated liver enzymes presents to the emergency department via EMS for altered mentation, left gaze deviation. Nursing staff states that 1 nurse left the room and another came in in the span of 30 minutes. Last known well time was about 130 this afternoon. On the second nurses arrival the patient would not respond to verbal commands and had apparent left gaze deviation. The patient on arrival he is moaning and does apparently have a predilection for left gaze. She will respond to verbal commands but is alert. Blood sugar for EMS in route was in the 90s. All other systems reviewed and negative except documented per HPI. Voice recognition software was used to help create this chart Allergies and Home Medications Allergies Coded Allergies: No Known Drug Allergies (Unverified , 07/11/22) Patient Home Medication List Home Medication List Reviewed: Yes Acetaminophen (Tylenol) 325 Mg Tablet, 650 MG PO Q6H PRN for PAIN-MILD (1-4) OR TEMPATURE, (Reported) Entered as Reported by: DELORES MUSA on 03/27/231099 Colchicine (Colchicine) 0.6 Mg Tablet, 0.6 MG PO BID, (Reported) Entered as Reported by: DELORES MUSA on 03/27/231099 Docusate Sodium (Docusate Sodium) 100 Mg Capsule, 100 MG PO BID, (Reported) Entered as Reported by: DELORES MUSA on 03/27/231099 Furosemide (Furosemide) 20 Mg Tablet, 20 MG PO DAILY, (Reported) Entered as Reported by: DELORES MUSA on 03/27/231099 Levothyroxine Sodium (Levothyroxine Sodium) 50 Mcg Tablet, 50 MCG PO DAILY, (Reported) Entered as Reported by: DELORES MUSA on 03/27/231099 Loperamide HCl (Imodium A-D) 2 Mg Capsule, 2-4 MG PO UD PRN for DIARRHEA, (Reported) Entered as Reported by: DELORES MUSA on 03/27/231099 Melatonin (Melatonin) 5 Mg Tablet, 5 MG PO HS, (Reported) Entered as Reported by: DELORES MUSA on 03/27/231099 Miconazole Nitrate (Miconazole Nitrate) 2 % Powder, 1 APPLIC TP UD PRN for RASH, (Reported) Entered as Reported by: DELORES MUSA on 03/27/231099 Midodrine HCl (Midodrine HCl) 10 Mg Tablet, 10 MG PO TID, (Reported) Entered as Reported by: DELORES MUSA on 03/27/231099 Nystatin (Nystop) 100,000 Unit/Gram Powder, 1 APPLIC TP BID, (Reported) Entered as Reported by: DELORES MUSA on 03/27/231099 Rivaroxaban (Xarelto) 15 Mg Tablet, 15 MG PO DAILY, (Reported) Entered as Reported by: DELORES UMSA on 03/27/231099 Tramadol HCl (Tramadol HCl) 50 Mg Tablet, 50 MG PO DAILY PRN for PAIN-MODERATE (5-7), (Reported) Entered as Reported by: DELORES MUSA on 03/27/231099 Vancomycin HCl (Vancomycin HCl) 125 Mg Capsule, 125 MG PO QID Prescribed by: NAZARIO RATLIFF on 03/29/23 0726 Review of Systems Review of Systems Constitutional: see HPI Past Fmscdeg-Bcqcdw-Loacae Hx Patient Social History Tobacco Use?: No Use of E-Cig and/or Vaping dev: No Substance use?: No Alcohol Use?: No Past Medical History Surgery/Hospitalization HX: Gout, HTN, Hypothyroid, Hyperlipidemia, Osteoarthritis, Obesity Gallbladder High Cholesterol, Hypertension Dementia Renal Failure Arthritis Family Medical History No Pertinent Family Hx Physical Exam Vital Signs Vital Signs - First Documented 04/04/23 04/04/23 14:10 18:28 Temp 36.5 Pulse 103 Resp 18 B/P (MAP) 155/96 (115) Pulse Ox 97 O2 Delivery Room Air O2 Flow Rate 30.00 Capillary Refill : Height, Weight, BMI Height: '" Weight: lbs. oz. kg; 38.16 BMI Method: General Appearance: other (moaning) HEENT: PERRL/EOMI, other (L gaze deviation) Neck: non-tender, normal inspection Respiratory: chest non-tender, lungs clear, normal breath sounds, no respiratory distress, no accessory muscle use Cardiovascular: regular rate, rhythm, no murmur Gastrointestinal: normal bowel sounds, non tender, soft, no organomegaly Extremities: normal range of motion, normal inspection, normal capillary refill Neurologic/Psychiatric: alert, other (Left gaze deviation with apparent right- sided facial droop. Full neurologic exam is difficult as patient is not following commands. She does withdraw all extremities to pain.) Skin: normal color, warm/dry Procedures/Interventions Reason for Intubation: apnea, resp failure Intubation Method: orotracheal Tube Size: 7.5 Medications: Etomidate, Rocuronium Positive End Tide CO2: Yes Breath Sounds after Intubation: bilateral-equal Intubation Complications: no complications Post Intubation Xray: Yes ET tube pulled back 2cm Progress/Results/Core Measures Results/Orders Lab Results Laboratory Tests Test 04/04/23 13:59 04/04/23 14:10 04/04/23 14:11 04/04/23 14:56 Range/Units Lab Scanned Report LAB Reports [id number] White Blood Count 5.0 4.3-11.0 10^3/uL Red Blood Count 4.87 3.80-5.11 10^6/uL Hemoglobin 12.5 # 11.5-16.0 g/dL Hematocrit 40 35-52 % Mean Corpuscular Volume 82 80-99 fL Mean Corpuscular Hemoglobin 26 25-34 pg Mean Corpuscular Hemoglobin Concent 31 L 32-36 g/dL Red Cell Distribution Width 20.6 H 10.0-14.5 % Platelet Count 280 130-400 10^3/uL Mean Platelet Volume 10.3 9.0-12.2 fL Immature Granulocyte % (Auto) 0 % Neutrophils (%) (Auto) 53 42-75 % Lymphocytes (%) (Auto) 33 12-44 % Monocytes (%) (Auto) 13 H 0-12 % Eosinophils (%) (Auto) 0 0-10 % Basophils (%) (Auto) 1 0-10 % Neutrophils # (Auto) 2.6 1.8-7.8 X 10^3 Lymphocytes # (Auto) 1.6 1.0-4.0 X 10^3 Monocytes # (Auto) 0.7 0.0-1.0 X 10^3 Eosinophils # (Auto) 0.0 0.0-0.3 10^3/uL Basophils # (Auto) 0.0 0.0-0.1 10^3/uL Immature Granulocyte # (Auto) 0.0 0.0-0.1 10^3/uL Prothrombin Time 19.3 H 12.2-14.7 SEC INR Comment 1.6 H 0.8-1.4 Activated Partial Thromboplast Time 50 H 24-35 SEC Sodium Level 140 135-145 MMOL/L Potassium Level 4.2 3.6-5.0 MMOL/L Chloride Level 102 98-107 MMOL/L Carbon Dioxide Level 26 21-32 MMOL/L Anion Gap 12 5-14 MMOL/L Blood Urea Nitrogen 9 7-18 MG/DL Creatinine 0.86 0.60-1.30 MG/DL Estimat Glomerular Filtration Rate 68 BUN/Creatinine Ratio 10 Glucose Level 101 70-105 MG/DL Calcium Level 8.0 L 8.5-10.1 MG/DL Corrected Calcium 9.0 8.5-10.1 MG/DL Total Bilirubin 0.6 0.1-1.0 MG/DL Aspartate Amino Transf (AST/SGOT) 61 H 5-34 U/L Alanine Aminotransferase (ALT/SGPT) 49 0-55 U/L Alkaline Phosphatase 578 H 40-136 U/L Troponin I < 0.30 <0.30 NG/ML Total Protein 6.3 L 6.4-8.2 GM/DL Albumin 2.7 L 3.2-4.5 GM/DL Glucometer 91 70-110 MG/DL Urine Color DK YELLOW Urine Clarity CLOUDY Urine pH 5.5 5-9 Urine Specific [place] 1.015 L 1.016-1.022 Urine Protein 1+ H NEGATIVE Urine Glucose (UA) NEGATIVE NEGATIVE Urine Ketones NEGATIVE NEGATIVE Urine Nitrite POSITIVE H NEGATIVE Urine Bilirubin NEGATIVE NEGATIVE Urine Urobilinogen 0.2 < = 1.0 MG/DL Urine Leukocyte Esterase 1+ H NEGATIVE Urine RBC (Auto) 3+ H NEGATIVE Urine RBC >100 H /HPF Urine WBC 50-100 H /HPF Urine Squamous Epithelial Cells RARE /HPF Urine Crystals NONE /LPF Urine Bacteria LARGE H /HPF Urine Casts NONE /LPF Urine Mucus NONE /LPF Urine Culture Indicated YES Test 04/04/23 15:47 Range/Units Blood Gas Puncture Site UNK Blood Gas Patient Temperature UNK Arterial Blood pH 7.42 7.37-7.43 Arterial Blood Partial Pressure CO2 38 35-45 MMHG Arterial Blood Partial Pressure O2 244 H 79-93 MMHG Arterial Blood HCO3 25 23-27 MMOL/L Arterial Blood Total CO2 25.8 21.0-31.0 MMOL/L Arterial Blood Oxygen Saturation 100 94-100 % Arterial Blood Base Excess 0.3 -2.5-2.5 MMOL/L Merlin Test UNK Blood Gas Ventilator Setting NO Blood Gas Inspired Oxygen UNK Micro Results Microbiology 04/04/23 Urine Culture - Preliminary, Resulted Probable Klebsiella/Enterobact My Orders Orders - DELMA ELLIS DO Ct Head Wo-R/O Stroke (04/04/23 14:00) Monitor-Rhythm Ecg Trace Only (04/04/23 14:00) Vital Signs Stroke Patient Q15M (04/04/23 14:00) Dysphagia Screening Tool [id number] (04/04/23 14:00) Cbc With Automated Diff (04/04/23 14:00) Protime With Inr (04/04/23 14:00) Partial Thromboplastin Time (04/04/23 14:00) Comprehensive Metabolic Panel (04/04/23 14:00) Troponin I Fs (04/04/23 14:00) Ua Culture If Indicated (04/04/23 14:00) Chest 1 View Ap/Pa Only (04/04/23 14:00) Ekg Tracing (04/04/23 14:00) Nothing By Mouth (04/04/23 Lunch) Accucheck Stat ONCE (04/04/23 14:00) Ed Iv/Invasive Line Start (04/04/23 14:00) Vital Signs Stroke Patient Q15M (04/04/23 14:00) O2 (04/04/23 14:00) Intake & Output 06,14,22 (04/04/23 14:00) Dysphagia Screening Tool [id number] (04/04/23 14:00) Ct Angio Head/Neck (04/04/23 14:10) Iohexol Injection (Omnipaque 350 Mg/Ml 1 (04/04/23 14:45) Di Iv Start (Assessment) .IV start (04/04/23 14:32) Received Contrast (Hold Metformin- Contr (04/04/23 14:45) Ns (Ivpb) 100 Ml (Sodium Chloride 0.9% 1 (04/04/23 14:45) Urine Culture (04/04/23 14:56) Ceftriaxone Iv/Im (Rocephin Iv/Im) (04/04/23 15:30) Propofol Drip (Icu) (Diprivan Drip (Icu) (04/04/23 15:46) Chest 1 View Ap/Pa Only (04/04/23 ) Arterial Blood Gas (04/04/23 15:55) Levetiracetam Injection (Keppra Injectio (04/04/23 15:58) Propofol Drip (Icu) (Diprivan Drip (Icu) (04/04/23 18:38) Etomidate Injection (Amidate Injection) (04/04/23 14:00) Rocuronium Injection (Zemuron Injection) (04/04/23 14:00) Ns Iv 1000 Ml (Sodium Chloride 0.9%) (04/04/23 14:00) Medications Given in ED Vital Signs/I&O 04/04/23 04/04/23 04/04/23 14:10 15:48 18:28 Temp 36.5 Pulse 103 91 89 Resp 18 20 B/P (MAP) 155/96 (115) 161/97 136/78 Pulse Ox 97 100 O2 Delivery Room Air Mechanical Ventilator O2 Flow Rate 30.00 Comment EKG is poor quality with a wandering baseline due to patient tremor and inability to sit still but overall shows a sinus rhythm with a rate of 99 bpm. Normal intervals. Apparently normal axis. Right bundle branch block. No ST or T wave abnormalities. No ectopy. No STEMI Critical Care Note Critical Care Total Time (minutes) 90, excludes procedures Departure Communication (Admissions) I spoke to the patient's niece who is her listed power of deputy prosecuting attorney for healthcare decisions, García Dominguez ph [phone], she states the patient will be a full code. The patient's not a candidate for TNKase as she is on Xarelto. CT scan initially shows no obvious bleeding on my independent review. Awaiting radiology read. Concern for stroke. Went and ordered CTA head and neck as she would likely be a candidate for endovascular therapy if she has large vessel occlusion. I spoke with her power of deputy prosecuting attorney about this and she states that she would want this for the patient if she is a candidate. Other differential considerations include hypo-, hypernatremia, hypohyper-glycemia, infection causing altered mentation. 1505: Spoke to Dr Preciado stroke neurology. She agrees patient not candidate for lytic therpay. CT angio head/neck show no evidence for large vessel occlusion. Not a candidate for endovascular therapy. She reccomends admission and MRI. Would recommend EEG at some point but states no indication for transfer for this. 1510: Pending call back from Dr Menendez for admission 1520: Called to room for resp failure. Her niece reports that she looked to the right briefly and then stopped breathing. She did have some jerking type movements prior to this. She was emergently intubated without complication. Her oxygen saturation remained greater than 90 throughout the procedure. Her pulse remained strong and heart rate was in the 80-90 range and blood pressures were normal. I spoke with Dr. Bird once again and she request transfer to [facility] due to the complexity of the case. I think she may be having seizures, status epilepticus. With neurology, Dr. Estrella 1 more time and she is speaking with the neuro plate worker helper at this time. They recommend 2 g of Keppra be loaded. She does have a urinary tract infection so started Rocephin. This is likely not contributing to her current clinical presentation. Impression Primary Impression: Left-sided weakness Additional Impressions: UTI (urinary tract infection) Qualified Codes: N30.00 - Acute cystitis without hematuria Respiratory failure Qualified Codes: J96.01 - Acute respiratory failure with hypoxia; J96.02 - Acute respiratory failure with hypercapnia Disposition: XF SHT-TRM HOSP Condition: Stable Departure-Patient Inst. Referrals: SHANNA HENNESSY APRN (PCP) Primary Care Physician [facility] (Family) Primary Care Physician DELMA ELLIS DO Apr 04, 2023 14:16
--- NOTE | 2023-04-04 14:18 | Diagnostic Imaging Report ---
PROCEDURE: CT head wo r/o stroke. TECHNIQUE: Multiple contiguous axial images were obtained through the brain without the use of intravenous contrast. Auto Exposure Controls were utilized during the CT exam to meet ALARA standards for radiation dose reduction. INDICATION: Altered mental status and visual disturbance CT HEAD: CT images of the head were obtained. FINDINGS: Ventricles and sulci are within normal limits for size. There is no intracranial hemorrhage identified. There is no abnormal mass effect or shift of midline structures. IMPRESSION: Unremarkable CT of the head. Dictated by: Dictated on workstation # [id number]
[2023-04-04 14:44] LABS: HEMOGLOBIN 12.5 g/dL (11.5-16.0); MEAN CORPUSCULAR HEMOGLOBIN 26 pg (25-34)
[2023-04-04 14:45] LABS: BASOPHILS % (AUTO) 1 % (0-10); EOSINOPHILS % (AUTO) 0 % (0-10); HEMATOCRIT 40 % (35-52); LYMPHOCYTES # (AUTO) 1.6 X 10^3 (1.0-4.0); LYMPHOCYTES % (AUTO) 33 % (12-44); MEAN CORPUSCULAR HGB CONC 31 g/dL (32-36); MEAN CORPUSCULAR VOLUME 82 fL (80-99); MEAN PLATELET VOLUME 10.3 fL (9.0-12.2); MONOCYTES # (AUTO) 0.7 X 10^3 (0.0-1.0); MONOCYTES % (AUTO) 13 % (0-12); NEUTROPHILS # (AUTO) 2.6 X 10^3 (1.8-7.8); NEUTROPHILS % (AUTO) 53 % (42-75); PLATELET COUNT 280 10^3/uL (130-400)
[2023-04-04] MEDS ORDERED: NS 100 ML (IVPB) BAG IV ONE (14:45)
[2023-04-04] MEDS ORDERED: HOLD METFORMIN - RECEIVED CONTRAST 20 ML VIAL IV SCH (14:45)
[2023-04-04] MEDS ORDERED: IOHEXOL 350 MG/ML 100 ML (OMNIPAQUE 350) VIAL IV ONE (14:45)
--- NOTE | 2023-04-04 14:53 | Diagnostic Imaging Report ---
PROCEDURE: CT angiography of the head and CT angiography of the neck with and without contrast. TECHNIQUE: Contiguous noncontrast images were obtained from the skull base through the vertex. After intravenous contrast administration, helical CT angiography of the neck was performed. Source data was reformatted into 3D MIP projections. Delayed post contrast acquisition was also obtained. Auto Exposure Controls were utilized during the CT exam to meet ALARA standards for radiation dose reduction. INDICATION: Altered mental status, delayed postcontrast enhanced CT head showed no abnormal parenchymal or meningeal enhancement. There is enhancement of the major dural venous sinuses. No hydrocephalus or edema. CT ANGIOGRAM NECK: There is conventional branching of the great vessels, the cervical vertebral arteries widely patent and codominant. Bilateral common carotids patent. There are mild calcified plaques at the bulbs and bifurcations without significant stenosis. Remaining cervical internal carotids widely patent. CT ANGIOGRAM HEAD: The intradural vertebral arteries, the basilar and the SHANK TURNER segments unremarkable. The intracranial ICAs patent. A1 segments, the ACOM, A2 segments unremarkable. The bilateral middle cerebral arterial segments as well as their primary branches are patent. No large vessel occlusion, thrombus, aneurysm or vascular malformation. No hemodynamically significant stenosis. The major dural venous sinuses are patent. IMPRESSION: Mild cervical atherosclerotic changes without stenosis. No thrombus, large vessel occlusion, aneurysm, dissection or other acute cervical or intracranial arterial abnormalities identified. Dictated by: Dictated on workstation # [id number]
--- NOTE | 2023-04-04 14:53 | Diagnostic Imaging Report ---
INDICATION: Altered mental status FINDINGS: Lungs are clear. No failure, effusion or pneumothorax. IMPRESSION: Unremarkable frontal chest. Dictated by: Dictated on workstation # [id number]
[2023-04-04 14:58] LABS: BUN/CREATININE RATIO 10; CARBON DIOXIDE 26 MMOL/L (21-32); CHLORIDE 102 MMOL/L (98-107); CREATININE SERUM 0.86 MG/DL (0.60-1.30); GFR ESTIMATED 68; GLUCOSE 101 MG/DL (70-105); POTASSIUM 4.2 MMOL/L (3.6-5.0); SODIUM 140 MMOL/L (135-145)
[2023-04-04 14:59] LABS: ALANINE AMINOTRANSFERASE 49 U/L (0-55); ALBUMIN 2.7 GM/DL (3.2-4.5); ALKALINE PHOSPHATASE 578 U/L (40-136); BILIRUBIN,TOTAL 0.6 MG/DL (0.1-1.0); TOTAL PROTEIN 6.3 GM/DL (6.4-8.2)
[2023-04-04 15:00] LABS: INR 1.6 (0.8-1.4); PROTHROMBIN TIME PATIENT 19.3 SEC (12.2-14.7)
[2023-04-04 15:16] LABS: CLARITY,URINE CLOUDY; COLOR,URINE DK YELLOW; GLUCOSE, URINE (UA) NEGATIVE (NEGATIVE); PH,URINE 5.5 (5-9); PROTEIN,URINE 1+ (NEGATIVE)
[2023-04-04 15:17] LABS: BACTERIA,URINE LARGE /HPF; BILIRUBIN,URINE NEGATIVE (NEGATIVE); KETONES,URINE NEGATIVE (NEGATIVE); LEUKOCYTE ESTERASE ,URINE 1+ (NEGATIVE); NITRITE,URINE POSITIVE (NEGATIVE); RBC,URINE >100 /HPF; SQUAMOUS EPITHELIAL CELL,UR RARE /HPF; WBC,URINE 50-100 /HPF
[2023-04-04] MEDS ORDERED: cefTRIAXone IV/IM 1,000 MG in NS (IVPB) 50 ML 50 ML IV ONE (15:30)
[2023-04-04] MEDS ORDERED: PROPOFOL DRIP (ICU) 100 ML IV ONE ×2 (15:46→18:38)
[2023-04-04] MEDS ORDERED: NS IV STA (15:58)
[2023-04-04] MEDS ORDERED: LEVETIRACETAM IV STA (15:58)
[2023-04-04 16:03] LABS: ABG PCO2 38 MMHG (35-45); ABG PH 7.42 (7.37-7.43); ABG PO2 244 MMHG (79-93)
[2023-04-04 16:04] LABS: ABG BASE EXCESS 0.3 MMOL/L (-2.5-2.5); ABG OXYGEN SATURATION 100 % (94-100); ABG TCO2 25.8 MMOL/L (21.0-31.0); VENTILATOR NO
--- NOTE | 2023-04-04 16:10 | Diagnostic Imaging Report ---
INDICATION: Intubation. Comparison is made with prior exam of 04/04/2023 at 2:59 PM. This exam is done at 3:38 PM. FINDINGS: There has been interval placement of an endotracheal tube and nasogastric tube, both of which are in satisfactory position. Heart size is normal. Mild venous congestion. No pleural effusion or pneumothorax. Mediastinum is unremarkable. IMPRESSION: ET and NG tubes appear to be in satisfactory position. Mild central pulmonary venous congestion. Dictated by: Dictated on workstation # [id number]
[2023-04-04 18:28] VITALS: BP 136/78
== END 2023-04-04 18:54 | disposition short-term general hospital (02) ==
LOC: EDUNIT# 13:58 → ER FS 13:59
DX: N39.0 Urinary tract infection, site not specified (principal); J96.90 Respiratory failure, unspecified, unspecified whether with hypoxia or hypercapnia; R53.1 Weakness; R25.8 Other abnormal involuntary movements; I45.10 Unspecified right bundle-branch block; E66.9 Obesity, unspecified; Z79.01 Long term (current) use of anticoagulants; Z68.38 Body mass index [BMI] 38.0-38.9, adult
CPT/HCPCS: 31500; 36415; 51702; 70450; 70496; 70498; 71045; 80053; 81000; 82805; 82947; 84484; 85025; 85610; 85730; 87077; 87088; 87186; 93005; 93041; 99291; Q9967